=== PATIENT | male | born 1945 | race Caucasian/White ===

== ENCOUNTER → 2016-08-25 | Outpatient (CLI) | payer OTHER ==
[~2016-08-25] MED LIST: HYDR12.56 PO; LOSA50TA6 PO; NCDT14 TD
[2016-08-25 14:19] LABS: BLOOD UREA NITROGEN 8 mg/dl (7-18); BUN/CREATININE RATIO 9.7 (10-20); CALCIUM 8.9 mg/dl (8.5-10.1); CARBON DIOXIDE 29 mmol/L (21-32); CHLORIDE 99 mmol/L (98-107); GLUCOSE 99 mg/dl (70-99); POTASSIUM 3.6 mmol/L (3.5-5.1); SODIUM 136 mmol/L (136-145)
== END | disposition home or self-care (01) ==
LOC: C.LABBFT 07:50
PROVIDERS: ATTEND Nurse Practitioner
DX: E87.1 Hypo-osmolality and hyponatremia (principal)

== ENCOUNTER → 2017-06-12 | Outpatient (CLI) | payer OTHER ==
[2017-06-12 13:01] LABS: BLOOD UREA NITROGEN 17 mg/dl (7-18); BUN/CREATININE RATIO 20.1 (10-20); CARBON DIOXIDE 27 mmol/L (21-32); CHLORIDE 101 mmol/L (98-107); CREATININE 0.86 mg/dl (0.60-1.40); GLUCOSE 100 mg/dl (70-99); POTASSIUM 4.3 mmol/L (3.5-5.1); SODIUM 133 mmol/L (136-145)
== END | disposition home or self-care (01) ==
LOC: C.LABBFT 08:30
PROVIDERS: ATTEND Internal Medicine
DX: E87.1 Hypo-osmolality and hyponatremia (principal)

== ENCOUNTER 2019-02-25 11:39 | Inpatient (IN) ==
[2019-02-25] MEDS ORDERED: SODIUM CHLORIDE 0.9% 1000ML 1,000 ML IV SCH (12:00)
--- NOTE | 2019-02-25 12:26 | XRay Report ---
XR chest 1V portable CLINICAL HISTORY: weakness dyspnea COMPARISON STUDY: 12/31/2018 FINDINGS: The bones soft tissues and hemidiaphragms are normal. The cardiomediastinal silhouette is n ormal. The lungs are clear. The pulmonary vasculature is normal. IMPRESSION: Negative chest. The above report was generated using voice recognition software. It may contain grammatical, syntax or spelling errors. Electronically signed by: Chase Parsons M.D. 02/25/2019 12:25 PM
[2019-02-25 12:39] LABS: Prothrombin Time 10.5 Seconds (9.0-12.0)
[2019-02-25 12:48] LABS: Albumin Level 2.4 gm/dl (3.4-5.0); BUN Creatinine Ratio 32.4 (10-20); Calcium 8.4 mg/dl (8.5-10.1); Creatinine Clr Calc Pharmacy 72.8 ml/min; Est GFR (African American) 104.7; Est GFR (Non-African American) 90.3; Hematocrit (blood only) 34.7 % (42-52); Hemoglobin 12.1 g/dL (14.0-18.0); Magnesium 2.4 mg/dl (1.8-2.4); Mean Corpuscular Hemoglobin 30.6 pg (25-34); Mean Corpuscular Hgb Conc 34.9 g/dL (32-36); Mean Corpuscular Volume 87.6 fL (80-100); Mean Platelet Volume 10.5 fL (7.4-10.4); Platelet Count 30 K/uL (130-400); Potassium 3.6 mmol/L (3.5-5.1); RDW Coefficient of Variation 14.2 % (11.5-14.5); RDW Standard Deviation 45.7 fL (36.4-46.3); Red Blood Count 3.96 M/uL (4.7-6.1); White Blood Count 0.08 K/uL (4.8-10.8)
[2019-02-25 13:00] LABS: Albumin Globulin Ratio 0.7 (0.9-2); Bilirubin,Total 0.6 mg/dl (0.2-1); Globulin 3.6 gm/dl (2.5-4.0); Thyroid Stimulating Hormone 0.882 uIu/ml (0.300-4.500)
--- NOTE | 2019-02-25 13:52 | History & Physical Report ---
Date of Service February 25, 2019 Assessment & Plan (1) Odynophagia: 73-year-old male with history of metastatic small cell lung cancer status post radiation to the chest, pancytopenic. Patient with 1 week of progressive odynophagia as well as dysphagia to both solids and liquids. Minimal p.o. intake over the last few days. Was seen in the ER yesterday with mild hypotension and dehydration, administered IV fluids and discharged home. Patient returns with similar symptoms. Differential to include radiation esophagitis, infectious etiology such as HSV, Zainab must also be considered. -Admit to medical floor -Full liquid diet as tolerated -IV hydration with LR at 125 mL/h x 2 L -Monitor chemistry/electrolytes, urine output -Viscous lidocaine as needed for pain -IV Tylenol as needed for pain -Pepcid 20 mg IV twice daily -Consult oncology. Appreciate assistance with this case -Consult GI. Appreciate assistance with this case Present on Admission?: Yes (2) Pancytopenia: Patient afebrile, hemodynamically stable. -Neutropenic precautions -Repeat CBC in a.m. Present on Admission?: Yes (3) Hypothyroidism: Chronic. Stable. TSH equals 0.882 today -Continue Synthroid 25 mcg p.o. daily. If patient is unable to tolerate pills will switch to IV Present on Admission?: Yes (4) Hypertension: Blood pressure 152/62 at present. -Continue Norvasc -Continue losartan -Continue to monitor Present on Admission?: Yes (5) Small cell lung carcinoma: Recently diagnosed in January 2019. Patient has completed palliative radiation to the brain and chest and has completed first course of chemotherapy. He follows with oncology. -Oncology consult as above. -Discussed future consultation with palliative care team to assist with symptom management and support. Reinforced that palliative care does not necessarily mean hospice or end-of-life. Family is agreeable to future consultation. 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 Patient was initially seen in January 2019 with complaints of hoarseness and unintentional weight loss as well as dyspnea on exertion. He had a CT of the chest performed which showed a subcarinal/right lower lobe mass with additional satellite nodules and hypodense masses of the liver concerning for metastatic disease. On January 05, 2019 he had an FNA of the left lobe of the liver which revealed metastatic small cell carcinoma. On January 25 he had an MRI of the brain which revealed at least 10 enhancing cerebral and cerebellar masses with surrounding edema suggestive of metastatic disease. The patient completed palliative radiation therapy to the brain and the chest on February 11, 2019, 3000cGy to each area. Patient completed first cycle of carboplatin/etoposide/atezolizumab approximately 7 days ago. He is due for his next treatment in early March. Patient reports that since completion of his chemotherapy he has had a sore throat, difficulty swallowing secondary to pain, as well as dysphasia to both food and liquids. The symptoms have been progressive over the last 7 days. Patient also notes blisters on his lips that occurred 3 days ago which he believed to be cold sores as well as a rash on the soles of his feet. He also complains of substernal chest burning and loss of appetite. Patient has been unable to tolerate p.o. for the last few days. He was seen in the ER yesterday with similar complaints. He was administered IV fluids and discharged home with oncology follow-up. Patient denies fever but complains of frequent chills. He denies headache, visual changes, lesions in the mouth, abdominal pain, nausea, vomiting, diarrhea, constipation, dysuria. No additional complaints at this time. ER course: Normal saline fluid Allergies Allergy/AdvReac Type Severity Reaction Status Date / Time lisinopril AdvReac Verified 02/25/19 12:32 Home Medications Home Medications Medication Instructions Recorded Confirmed Type amlodipine 5 mg tablet 5 mg PO QAM 12/31/18 02/25/19 History aspirin 81 mg tablet,delayed 81 mg PO Q2D tab 12/31/18 02/25/19 History release levothyroxine 25 mcg tablet 25 mcg PO QAM 12/31/18 02/25/19 History metronidazole 0.75 % lotion 1 appln TOP QA 01/27/19 02/25/19 History acetaminophen [Tylenol Extra 500 mg PO Q6H PRN 02/25/19 02/25/19 History Strength] losartan 100 mg PO QAM 02/25/19 02/25/19 History Past Med/Surg History Medical History Acne rosacea (Acute) Anemia (Acute) Brain tumor (Acute) Dermatitis (Acute) Hoarseness (Acute) Hypertension (Acute) Hypothyroid (Acute) Impaired fasting glucose (Acute) Lung mass (Acute) Onychomycosis (Acute) Small cell carcinoma of lung (Acute) Surgical History History of arthroscopy of knee surgery 40 yrs ago Family History Father Myocardial infarction Brother , Myocardial infarction Sister , age 83 Diabetes Mother , age 96 Diabetes Stroke syndrome Sister No problems noted. Brother Coronary heart disease valve replacement Son No problems noted. Social History Preferred Language: R[place] Communication Ability: Effective Visual Impairment: Limited Hearing Ability: Normal Vice President Compliance Required: No Beliefs That Will Affect Care: None marital status: Current Living Situation: Spouse current occupational status: retired current occupation: retired [employer] worker Feels Safe at Home: Yes Smoking Status: Heavy tobacco smoker Cigarettes Per Day: 30 ; Hx Alcohol Use: Yes Alcohol type: beer Hx Substance Use: No Childhood Exposure to Second-Hand Smoke: Yes Review of Systems Review of Systems: All systems reviewed & are unremarkable except as noted in HPI & below Physical Exam Physical Exam: General: patient ill in appearance, resting comfortably, NAD, AA&O x 4, voice is soft and hoarse Skin: warm, dry, intact, crusted lesions noted on lower lip, no obvious vesicles, soles of feet with blanchable macular kolton colored reticular rash, nontender, no nodules/purpura HEENT: NC/AT, PERRL, EOMI, anicteric sclera, conjunctiva without injection, external ear normal to inspection and nontender, nares patent, dry mucus membranes, dentition intact, no oropharyngeal lesions, neck supple, trachea midline, no LAD, no thyromegaly, no JVD Heart: +S1/S2, regular, no m/r/g Lungs: equal air entry bilaterally, no rales/rhonchi/wheezes Abd: +BS, soft, NT/ND, no masses/organomegaly/ascites Ext: warm, 2+ pulses in UE/LE bilaterally, no clubbing/cyanosis or edema Neuro: nonfocal, patient AA&O x 4, speech intact, no facial droop, moving all extremities on command with equal strength 5/5 Results & Data Vital Signs (Past 12 Hours) Vital Signs Temp Pulse Pulse Resp BP BP Pulse Ox 02/25/19 12:35 61 20 152/62 H 96 02/25/19 11:45 36.7 C 98 H 20 131/90 98 Laboratory Results Lab Results 02/25/19 02/25/19 02/25/19 Range/Units 12:09 12:09 12:09 WBC 0.08 L* (4.8-10.8) K/uL RBC 3.96 L (4.7-6.1) M/uL Hgb 12.1 L (14.0-18.0) g/dL Hct 34.7 L (42-52) % MCV 87.6 (80-100) fL MCH 30.6 (25-34) pg MCHC 34.9 (32-36) g/dL RDW Std Deviation 45.7 (36.4-46.3) fL RDW Coeff of Moreno 14.2 (11.5-14.5) % Plt Count 30 L (130-400) K/uL MPV 10.5 H (7.4-10.4) fL Immature Gran % (Auto) Cancelled Neut % (Auto) Cancelled Lymph % (Auto) Cancelled Mason % (Auto) Cancelled Eos % (Auto) Cancelled Baso % (Auto) Cancelled Immature Gran # (Auto) Cancelled Neut # (Auto) Cancelled Lymph # (Auto) Cancelled Mason # (Auto) Cancelled Eos # (Auto) Cancelled Baso # (Auto) Cancelled Neutrophils % (Manual) Cancelled Band Neutrophils % Cancelled Lymphocytes % (Manual) Cancelled Prolymphocyte % Cancelled Reactive Lymphs % (Man) Cancelled Monocytes % (Manual) Cancelled Eosinophils % (Manual) Cancelled Basophils % (Manual) Cancelled Metamyelocytes % (Man) Cancelled Myelocytes % (Man) Cancelled Promyelocytes % (Man) Cancelled Blast Cells % (Manual) Cancelled Plasma Cell % (Manual) Cancelled Other Cells % Cancelled Nucleated RBC % Cancelled Neutrophils # (Manual) Cancelled Band Neutrophils # Cancelled Total Absolute Neuts Cancelled Lymphocytes # (Manual) Cancelled Prolymphocyte # Cancelled Reactive Lymphs # Cancelled Total Abs Lymphocytes Cancelled Monocytes # (Manual) Cancelled Eosinophils # (Manual) Cancelled Basophils # (Manual) Cancelled Metamyelocytes # (Man) Cancelled Myelocytes # (Manual) Cancelled Promyelocytes # (Man) Cancelled Blast Cells # (Man) Cancelled Plasma Cell # (Manual) Cancelled Other Cells # Cancelled Nucleated RBCs # (Man) Cancelled Hypersegmented Neuts Cancelled Hyposegmented Neuts Cancelled Hypogranular Neuts Cancelled Large Granular Lymphs Cancelled # Lrg Granular Lymphs Cancelled Hairy Cells Cancelled Smudge Cells Cancelled Toxic Granulation Cancelled Toxic Vacuolation Cancelled Dohle Bodies Cancelled Moi Rods Cancelled Hypogranular Platelets Cancelled Clumped Platelets Cancelled Giant Platelets Cancelled Platelet Satelliting Cancelled RBC Morphology Cancelled Polychromasia Cancelled Hypochromasia Cancelled Poikilocytosis Cancelled Basophilic Stippling Cancelled Anisocytosis Cancelled Microcytosis Cancelled Macrocytosis Cancelled Spherocytes Cancelled Pappenheimer Bodies Cancelled Sickle Cells Cancelled Target Cells Cancelled Tear Drop Cells Cancelled Ovalocytes Cancelled Stomatocytes Cancelled Rider-Villard Bodies Cancelled Echinocytes Cancelled Acanthocytes (Spur) Cancelled Rouleaux Cancelled RBC Agglutinates Cancelled Schistocytes Cancelled RBC Morph Comment Cancelled Sezary Cell Cancelled PT 10.5 (9.0-12.0) Seconds INR 1.0 (0.9-1.1) Sodium 145 (136-145) mmol/L Potassium 3.6 (3.5-5.1) mmol/L Chloride 113 H (98-107) mmol/L Carbon Dioxide 24 (21-32) mmol/L Anion Gap 8.0 (3-11) BUN 26 H (7-18) mg/dl Creatinine 0.79 (0.6-1.4) mg/dl Est Cr Clr Drug Dosing 72.8 ml/min Est GFR ( Amer) 104.7 Est GFR (Non-Af Amer) 90.3 BUN/Creatinine Ratio 32.4 H (10-20) Glucose 151 H (70-99) mg/dl Calcium 8.4 L (8.5-10.1) mg/dl Magnesium 2.4 (1.8-2.4) mg/dl Total Bilirubin 0.6 (0.2-1) mg/dl AST 25 (15-37) U/L ALT 43 (12-78) U/L Alkaline Phosphatase 74 (45-117) U/L Total Protein 6.0 L (6.4-8.2) gm/dl Albumin 2.4 L (3.4-5.0) gm/dl Globulin 3.6 (2.5-4.0) gm/dl Albumin/Globulin Ratio 0.7 L (0.9-2) TSH 0.882 (0.300-4.500) uIu/ml Diagnostic Findings XR chest 1V portable CLINICAL HISTORY: weakness dyspnea COMPARISON STUDY: 12/31/2018 FINDINGS: The bones soft tissues and hemidiaphragms are normal. The cardiomediastinal silhouette is normal. The lungs are clear. The pulmonary vasculature is normal. IMPRESSION: Negative chest. The above report was generated using voice recognition software. It may contain grammatical, syntax or spelling errors. Electronically signed by: Chase Parsons M.D. 02/25/2019 12:25 PM Dictated: 02/25/19 1224 Transcribed: 02/25/19 1224 Code Status & VTE Plan Code Status FULL VTE Prophylaxis Plan VTE Prophylaxis will be ordered: Yes PG Care Time/CCT Total # of Minutes Spent Total Time Spent with Patient: Total time spent is greater than 50% in coordination of care (as documented) at patient's floor/unit and/or counseling patient: (1) Hypothyroidism Hypothyroidism type: unspecified Qualified Code(s): E03.9 - Hypothyroidism, unspecified (2) Hypertension Hypertension type: essential hypertension Qualified Code(s): I10 - Essential (primary) hypertension
[2019-02-25] MEDS ORDERED: LIDOCAINE HCL VISCOUS SOLN 2% 15 ML UDC MT PRN (15:05)
[2019-02-25] MEDS ORDERED: ONDANSETRON INJ 2 MG/ML 2 ML VIAL IV PRN (15:05)
[2019-02-25] MEDS ORDERED: ACETAMINOPHEN 1,000 MG/100 ML VIAL IV PRN (15:05)
[2019-02-25] MEDS: LACTATED RINGER'S 1,000 ML IV SCH (16:08)
--- NOTE | 2019-02-25 17:05 | Gastrointestinal Consultation ---
Date of Consultation February 25, 2019 Assessment & Plan (1) Small cell lung carcinoma: (2) Odynophagia: Differential diagnosis includes: 1) Mucositis 2) Radiation esophagitis 3) Zainab esophagitis 4) GERD Recommend Protonix 40 mg IV BID Recommend Diflucan 200 mg IV today, then 100 mg IV daily for 10 days Recommend Magic mouthwash (1:1:1 mix of benadryl, maalox, and viscous lidocaine): Swish and swallow 15 ml QID Barium swallow, when his pancytopenia improves, as it is most likely related to chemotherapy Dr. Flower is covering this weekend for any questions related to GI (3) Pancytopenia: History of Present Illness Reason for Consultation: Dysphagia Attending Physician: Lianne Navarro DO History of Present Illness Mr. Anne is a pleasant 73 yo CM who was diagnosed with small cell lung cancer in December 2018. He has a known history of brain and hepatic mets, and has been receiving chemoradiation therapy as per Dr. James. He developed worsening dysphagia which began approximately 4 days after his most recent radiation treatments. He has had progressive symptoms of dysphagia to both solids and li quids. He has both trouble swallowing, as well as painful swallowing. He currently rates his painful swallowing as 8-9/10 in intensity. Upon arrival to the hospital, he was also noted to be pancytopenic. He denies any fevers at present, but does feel cold. He denies any abdominal pain, nausea, vomiting, diarrhea, hematemesis, melena, hematochezia, GERD, or history of endoscopic workup. Allergies Allergy/AdvReac Type Severity Reaction Status Date / Time lisinopril AdvReac Verified 02/25/19 12:32 Home Medications Home Medications Medication Instructions Recorded Confirmed Type amlodipine 5 mg tablet 5 mg PO QAM 12/31/18 02/25/19 History aspirin 81 mg tablet,delayed 81 mg PO Q2D tab 12/31/18 02/25/19 History release levothyroxine 25 mcg tablet 25 mcg PO QAM 12/31/18 02/25/19 History metronidazole 0.75 % lotion 1 appln TOP QAM 01/27/19 02/25/19 History acetaminophen [Tylenol Extra 500 mg PO Q6H PRN 02/25/19 02/25/19 History Strength] losartan 100 mg PO QAM 02/25/19 02/25/19 History Patient History Medical History Acne rosacea (Acute) Anemia (Acute) Brain tumor (Acute) Dermatitis (Acute) Hoarseness (Acute) Hypertension (Acute) Hypothyroid (Acute) Impaired fasting glucose (Acute) Lung mass (Acute) Onychomycosis (Acute) Small cell carcinoma of lung (Acute) Surgical History History of arthroscopy of knee surgery 40 yrs ago Family History Father Myocardial infarction Brother , Myocardial infarction Sister , age 83 Diabetes Mother , age 96 Diabetes Stroke syndrome Sister No problems noted. Brother Coronary heart disease valve replacement Son No problems noted. Social History Preferred Language: Wolof Communication Ability: Effective Visual Impairment: Limited Hearing Ability: Normal Wildlife Manager Required: No Beliefs That Will Affect Care: None marital status: Current Living Situation: Spouse current occupational status: retired current occupation: retired [employer] worker Feels Safe at Home: Yes Smoking Status: Former smoker Cigarettes Per Day: 30 ; Second Hand Exposure: No ; Hx Alcohol Use: Yes Alcohol type: beer Hx Substance Use: No Childhood Exposure to Second-Hand Smoke: Yes Review of Systems Review of Systems: All systems reviewed & are unremarkable except as noted in HPI & below Physical Exam Constitutional: Chronic ill-appearing, mild distress Respiratory: normal respiratory effort, lungs clear to auscultation Cardiovascular: RRR, no murmur, no edema Gastrointestinal (Abdomen): normal bowel sounds, soft, nontender, no hepatosplenomegaly Results & Data Vital Signs (Past 12 Hours) Vital Signs Temp Pulse Pulse Resp BP BP Pulse Ox 02/25/19 15:15 36.8 C 62 19 151/69 H 93 02/25/19 14:45 67 18 137/64 92 02/25/19 14:07 71 20 140/63 92 02/25/19 12:35 61 20 152/62 H 96 02/25/19 11:45 36.7 C 98 H 20 131/90 98 PG Care Time/CCT Total # of Minutes Spent Total Time Spent with Patient: Total time spent is greater than 50% in coordination of care (as documented) at patient's floor/unit and/or counseling patient:
[2019-02-25 17:19] LABS: Appearance Urine Clear (Clear); Bacteria Urine Automated Negative (Negative); Bilirubin Urine Negative (Negative); Blood Urine Negative (Negative); Color Urine Yellow; Glucose Urine UA Negative (Negative); Ketones Urine 2+ (Negative); Leukocyte Esterase Urine Negative (Negative); Nitrite Urine Negative (Negative); Protein Urine 2+ (Negative); RBC Urine Automated 0-4 /hpf (0-4); Specific Gravity Urine 1.018 (1.000-1.030); Urobilinogen Urine Negative (Negative); pH Urine 5.5 (4.5-7.5)
--- NOTE | 2019-02-25 18:09 | Emergency Department Note ---
Entered by Babs Quintanilla acting as a scribe for History of Present Illness General Chief complaint: Throat Pain Stated complaint: HARD TO SWALLOW Source: patient Mode of arrival: ambulatory Limitations: no limitations History of Present Illness Provider complaint: Throat pain Onset (ago): week(s) (several weeks ago) Location: mouth (throat) Radiation: non-radiation Pain Consistency: + other (worsening) Maximum Pain Intensity: 9 Quality: + other (pain, difficulty swallowing) Relieved By: + none Associated symptoms: + other (Denies: drainage, white spots in mouth); no fever/chills and no nausea/vomiting Treatments prior to arrival: none The patient is a 73 year old male with a history of small cell carcinoma of the lung, hypothyroidism, hypertension, brain tumor, and anemia who presents to the Emergency Room with complaints of worsening throat pain starting several weeks ago. Per , the patient started having pain when swallowing after starting radiation recently. She notes that he received 2 weeks of radiation, followed by chemotherapy last week. She indicates that the patient's difficulty swallowing has worsened, particularly over the past few days to the point where he can no longer eat and drink. She denies any fever, nausea, vomiting, drainage, and white spots in the patient's mouth. Per , the patient was in the ED last night for the same symptoms and was evaluated by Dr. Lamb. Dr. Lamb reportedly did not want to admit the patient out of concern for his compromised immune system. She states that she called Dr. Zimmer this morning because the patient had not improved after discharge and was subsequently referred back to the ED for admission to the hospital. She notes that the patient's PCP is Dr. Mariah Lockett. Home Medications Home Medications Medication Instructions Recorded Confirmed Type amlodipine 5 mg tablet 5 mg PO QAM 12/31/18 02/25/19 History aspirin 81 mg tablet,delayed 81 mg PO Q2D tab 12/31/18 02/25/19 History release levothyroxine 25 mcg tablet 25 mcg PO QAM 12/31/18 02/25/19 History metronidazole 0.75 % lotion 1 appln TOP QAM 01/27/19 02/25/19 History acetaminophen [Tylenol Extra 500 mg PO Q6H PRN 02/25/19 02/25/19 History Strength] losartan 100 mg PO QAM 02/25/19 02/25/19 History Allergies Allergy/AdvReac Type Severity Reaction Status Date / Time lisinopril AdvReac Verified 02/25/19 12:32 Past Med/Surg History Medical History Acne rosacea (Acute) Anemia (Acute) Brain tumor (Acute) Dermatitis (Acute) Hoarseness (Acute) Hypertension (Acute) Hypothyroid (Acute) Impaired fasting glucose (Acute) Lung mass (Acute) Onychomycosis (Acute) Small cell carcinoma of lung (Acute) Surgical History History of arthroscopy of knee surgery 40 yrs ago Family History Father Myocardial infarction Brother , Myocardial infarction Sister , age 83 Diabetes Mother , age 96 Diabetes Stroke syndrome Sister No problems noted. Brother Coronary heart disease valve replacement Son No problems noted. Social History Preferred Language: Persian Communication Ability: Effective Visual Impairment: Limited Hearing Ability: Normal Craniologist Required: No Beliefs That Will Affect Care: None marital status: Current Living Situation: Spouse current occupational status: retired current occupation: retired [employer] worker Feels Safe at Home: Yes Smoking Status: Former smoker Cigarettes Per Day: 30 ; Second Hand Exposure: No ; Hx Alcohol Use: Yes Alcohol type: beer Hx Substance Use: No Childhood Exposure to Second-Hand Smoke: Yes Review of Systems See HPI for pertinent positives & negatives. and A total of 10 systems reviewed and were otherwise negative Physical Exam Vital Signs Vital Signs - 24 hr 02/25/19 11:45 02/25/19 12:35 Temperature 36.7 C Temperature Source Oral Sepsis Recent Fever Within 48 Hours No Sepsis Action Taken by Nursing No Action Required Pulse Rate 98 H Pulse Rate [Apical] 61 Respiratory Rate 20 20 Respiratory Effort / Characteristics Non-Labored Spontaneous Respiratory Depth Normal Normal Blood Pressure 131/90 Blood Pressure [Left Arm] 152/62 H Blood Pressure Mean 103 Blood Pressure Mean [Left Arm] 92 Blood Pressure Position Sitting Pulse Oximetry 98 96 Oxygen Delivery Method Room Air Room Air GENERAL: Patient is awake alert in no acute distress patient is resting comfortably and showing no signs of anxiety EYES: The conjunctivae are clear. The pupils are round and reactive. EARS, NOSE, MOUTH AND THROAT: The nose is without any evidence of any deformity. Mucous membranes are dry. NECK: The neck is nontender and supple. RESPIRATORY: Normal respiratory effort is noted there is no evidence of wheezing rhonchi or rales CARDIOVASCULAR: Regular rate and rhythm noted there no murmurs rubs or gallops normal S1 normal S2 GASTROINTESTINAL: The abdomen is soft. Bowel sounds are present in all quadrants. Abdomen is nontender MUSCULOSKELETAL/EXTREMITIES: There is no evidence of gross deformity full range of motion is noted in the hips and shoulders SKIN: There is no obvious evidence of any rash. There are no petechiae, pallor or cyanosis noted. NEUROLOGIC: Patient is awake alert and oriented x3. Course 1158: The patient was evaluated in room C7, and a complete history and physical examination were performed. 1221: I reviewed the patient's case with Dr. Ramon Sim, Wendy Barrios. Dr. Navarro will evaluate the patient for further management. Consultations Consultation #1: I reviewed the patient's case with Dr. Ramon Sim, Wendy Barrios. Dr. Navarro will evaluate the patient for further management. Time: 12:21 Administered Medications Lactated Ringer's (Lr) 1,000 mls @ 125 mls/hr IV .Q8H NORMAN Stop: 02/26/19 07:04 Last Admin: 02/25/19 16:08 Dose: 125 mls/hr Documented by: [id number] Lidocaine HCl (Viscous Lidocaine 2%) 15 ml MT PRN PRN PRN Reason: Pain Stop: 03/27/19 15:04 Last Admin: 02/25/19 18:17 Dose: 15 ml Documented by: [id number] Discontinued Medications Sodium Chloride (Nss 1000ml) 1,000 mls @ 999 mls/hr IV .Q1H1M NORMAN Stop: 02/25/19 13:00 Last Infusion: 02/25/19 13:44 Dose: 0 mls/hr Documented by: [id number] Admin: 02/25/19 12:34 Dose: 999 mls/hr Documented by: [id number] Medical Decision Making Differential Diagnosis Differential diagnosis: Etiologies such as metabolic, infection, hypo/hyperglycemia, electrolyte abnormalities, cardiac sources, intracerebral event, toxicologic, neurologic, as well as others were entertained. Medical Records Attestation: I reviewed the patient's medical records. Home Medications Current Medication List: was personally reviewed by me Laboratory Data Attestation: I reviewed the patient's lab results. Result diagrams: 02/25/19 12:09 02/25/19 12:09 Lab Results 02/25/19 02/25/19 02/25/19 Range/Units 12:09 12:09 12:09 WBC 0.08 L* (4.8-10.8) K/uL RBC 3.96 L (4.7-6.1) M/uL Hgb 12.1 L (14.0-18.0) g/dL Hct 34.7 L (42-52) % MCV 87.6 (80-100) fL MCH 30.6 (25-34) pg MCHC 34.9 (32-36) g/dL RDW Std Deviation 45.7 (36.4-46.3) fL RDW Coeff of Moreno 14.2 (11.5-14.5) % Plt Count 30 L (130-400) K/uL MPV 10.5 H (7.4-10.4) fL Immature Gran % (Auto) Cancelled Neut % (Auto) Cancelled Lymph % (Auto) Cancelled Hardy % (Auto) Cancelled Eos % (Auto) Cancelled Baso % (Auto) Cancelled Immature Gran # (Auto) Cancelled Neut # (Auto) Cancelled Lymph # (Auto) Cancelled Hardy # (Auto) Cancelled Eos # (Auto) Cancelled Baso # (Auto) Cancelled Neutrophils % (Manual) Cancelled Band Neutrophils % Cancelled Lymphocytes % (Manual) Cancelled Prolymphocyte % Cancelled Reactive Lymphs % (Man) Cancelled Monocytes % (Manual) Cancelled Eosinophils % (Manual) Cancelled Basophils % (Manual) Cancelled Metamyelocytes % (Man) Cancelled Myelocytes % (Man) Cancelled Promyelocytes % (Man) Cancelled Blast Cells % (Manual) Cancelled Plasma Cell % (Manual) Cancelled Other Cells % Cancelled Nucleated RBC % Cancelled Neutrophils # (Manual) Cancelled Band Neutrophils # Cancelled Total Absolute Neuts Cancelled Lymphocytes # (Manual) Cancelled Prolymphocyte # Cancelled Reactive Lymphs # Cancelled Total Abs Lymphocytes Cancelled Monocytes # (Manual) Cancelled Eosinophils # (Manual) Cancelled Basophils # (Manual) Cancelled Metamyelocytes # (Man) Cancelled Myelocytes # (Manual) Cancelled Promyelocytes # (Man) Cancelled Blast Cells # (Man) Cancelled Plasma Cell # (Manual) Cancelled Other Cells # Cancelled Nucleated RBCs # (Man) Cancelled Hypersegmented Neuts Cancelled Hyposegmented Neuts Cancelled Hypogranular Neuts Cancelled Large Granular Lymphs Cancelled # Lrg Granular Lymphs Cancelled Hairy Cells Cancelled Smudge Cells Cancelled Toxic Granulation Cancelled Toxic Vacuolation Cancelled Dohle Bodies Cancelled Moi Rods Cancelled Hypogranular Platelets Cancelled Clumped Platelets Cancelled Giant Platelets Cancelled Platelet Satelliting Cancelled RBC Morphology Cancelled Polychromasia Cancelled Hypochromasia Cancelled Poikilocytosis Cancelled Basophilic Stippling Cancelled Anisocytosis Cancelled Microcytosis Cancelled Macrocytosis Cancelled Spherocytes Cancelled Pappenheimer Bodies Cancelled Sickle Cells Cancelled Target Cells Cancelled Tear Drop Cells Cancelled Ovalocytes Cancelled Stomatocytes Cancelled R[place] Bodies Cancelled Echinocytes Cancelled Acanthocytes (Spur) Cancelled Rouleaux Cancelled RBC Agglutinates Cancelled Schistocytes Cancelled RBC Morph Comment Cancelled Sezary Cell Cancelled PT 10.5 (9.0-12.0) Seconds INR 1.0 (0.9-1.1) Sodium 145 (136-145) mmol/L Potassium 3.6 (3.5-5.1) mmol/L Chloride 113 H (98-107) mmol/L Carbon Dioxide 24 (21-32) mmol/L Anion Gap 8.0 (3-11) BUN 26 H (7-18) mg/dl Creatinine 0.79 (0.6-1.4) mg/dl Est Cr Clr Drug Dosing 72.8 ml/min Est GFR ( Amer) 104.7 Est GFR (Non-Af Amer) 90.3 BUN/Creatinine Ratio 32.4 H (10-20) Glucose 151 H (70-99) mg/dl Calcium 8.4 L (8.5-10.1) mg/dl Magnesium 2.4 (1.8-2.4) mg/dl Total Bilirubin 0.6 (0.2-1) mg/dl AST 25 (15-37) U/L ALT 43 (12-78) U/L Alkaline Phosphatase 74 (45-117) U/L Total Protein 6.0 L (6.4-8.2) gm/dl Albumin 2.4 L (3.4-5.0) gm/dl Globulin 3.6 (2.5-4.0) gm/dl Albumin/Globulin Ratio 0.7 L (0.9-2) TSH 0.882 (0.300-4.500) uIu/ml Imaging Data Radiologist's Impression: Radiology results as stated below per my review and the radiologist's interpretation: XR chest 1V portable CLINICAL HISTORY: weakness dyspnea COMPARISON STUDY: 12/31/2018 FINDINGS: The bones soft tissues and hemidiaphragms are normal. The cardiomediastinal silhouette is normal. The lungs are clear. The pulmonary vasculature is normal. IMPRESSION: Negative chest. The above report was generated using voice recognition software. It may contain grammatical, syntax or spelling errors. Electronically signed by: Chase Parsons M.D. 02/25/2019 12:25 PM Blood Pressure Blood Pressure Findings: Normal blood pressure MDM Narrative The patient is a 73-year-old male who presented to the emergency department for an evaluation of decreased p.o. intake and pain with full swallowing. Patient is a history of small cell lung carcinoma and is treated with radiation. He had significant findings that could be consistent with dehydration. I discussed patient's laboratory results with him. He was seen yesterday for similar complaints but at that time was not felt to be a good candidate for inpatient management because of his pancytopenia. He continues to not be able to take p.o. intake so his oncologist sent him to the emergency department to be admitted. The patient was treated with IV fluids in the emergency department. I discussed his case with the on-call [facility] hospitalist group. They have agreed to evaluate the patient in the emergency department for further management disposition. The patient had no fevers in the emergency department. Impression & Plan Dysphagia, Dehydration, Lung cancer, Pancytopenia Discharge Plan Visit Data *Final* Discharge Date/Time: 02/25/19 14:45 Chief Complaint: Throat Pain Stated Complaint: HARD TO SWALLOW ED Provider: Manuel Obrien Discharge Problem: Dysphagia, Dehydration, Lung cancer, Pancytopenia Patient Disposition: Admitted As Inpatient Discharge Instructions Interventions: ED Discharge Assessment Last Done: 02/25/19 14:45 Discharge Problem: Dysphagia Qualifiers: Dysphagia type: unspecified Qualified Code(s): R13.10 - Dysphagia, unspecified Lung cancer Qualifiers: Laterality: unspecified laterality Lung location: unspecified part of lung Qualified Code(s): C34.90 - Malignant neoplasm of unspecified part of unspecified bronchus or lung The scribe's documentation has been prepared under my direction and personally reviewed by me in its entirety. I confirm that the note above accurately reflects all work, treatment, procedures, and medical decision making performed by me.
[2019-02-25] MEDS: ENOXAPARIN INJ 40 MG/0.4 ML SYR SQ SCH ×2 (21:24→21:30)
[2019-02-25] MEDS: FAMOTIDINE 20 MG in SYRINGE 3 ML IV SCH (21:25)
[2019-02-25] MEDS ORDERED: FLUCONAZOLE 200 MG/100 ML BAG IV STA (22:29)
[2019-02-26] MEDS: LACTATED RINGER'S 1,000 ML IV SCH ×3 (00:47→19:15)
[2019-02-26] MEDS ORDERED: DiphenhydrAMINE HCL 50 MG/ML VIAL IV STA (02:26)
[2019-02-26] MEDS: LEVOTHYROXINE SODIUM 25 MCG TABLET PO SCH (05:37)
[2019-02-26 06:26] LABS: Hematocrit (blood only) 27.3 % (42-52); Hemoglobin 9.6 g/dL (14.0-18.0); Mean Corpuscular Hemoglobin 30.8 pg (25-34); Mean Corpuscular Hgb Conc 35.2 g/dL (32-36); Mean Corpuscular Volume 87.5 fL (80-100); Mean Platelet Volume 9.7 fL (7.4-10.4); Platelet Count 24 K/uL (130-400); RDW Coefficient of Variation 13.9 % (11.5-14.5); RDW Standard Deviation 44.6 fL (36.4-46.3); Red Blood Count 3.12 M/uL (4.7-6.1); White Blood Count 0.03 K/uL (4.8-10.8)
[2019-02-26 06:37] LABS: BUN Creatinine Ratio 24.2 (10-20); Calcium 7.8 mg/dl (8.5-10.1); Creatinine Clr Calc Pharmacy 77.5 ml/min; Est GFR (African American) 110.7; Est GFR (Non-African American) 95.5; Potassium 2.9 mmol/L (3.5-5.1)
[2019-02-26] MEDS: LOSARTAN POTASSIUM 50 MG TAB PO SCH (08:46)
[2019-02-26] MEDS: AMLODIPINE BESYLATE 5 MG TAB PO SCH (08:47)
[2019-02-26] MEDS: FAMOTIDINE 20 MG in SYRINGE 3 ML IV SCH ×2 (08:53→20:50)
[2019-02-26] MEDS: POTASSIUM CHLORIDE / WTR 10 MEQ/100 ML PLCT IV SCH ×7 (10:37→20:49)
[2019-02-26] MEDS ORDERED: KETOROLAC TROMETHAMINE 15 MG/ML VIAL IV ONE (11:16)
[2019-02-26] MEDS ORDERED: ACETAMINOPHEN SOL 650 MG/20.3 ML UDC PO PRN (11:28)
--- NOTE | 2019-02-26 12:53 | Oncology Consultation ---
Date of Consultation February 26, 2019 Assessment & Plan (1) Dysphagia: I agree with gastroenterology that this likely represents acute esophagitis. Given his severely low ANC, I think empiric treatment for esophageal candidiasis is appropriate. He may also have components of chemo- induced mucositis and radiation-induced esophagitis. I suspect the reality is a combination of all three. I would continue with supportive care as prescribed. He can also swallow the viscous lidocaine if it helps him to eat. We will start GCSF, as below, which will accelerate the healing process. Finally, he will likely need some changes to his treatment regimen, which we will discuss with Dr. James. Present on Admission?: Yes (2) Pancytopenia: This is chemotherapy-induced but is much more severe than I might have anticipated. I would start neupogen 480 mcg SC daily today. I would transfuse him for hemglobin <8 and platelets <15K or for bleeding. His count should start to recover in the next few days. As discussed below, we will make some adjustments in his chemotherapy regimen moving forward. I would start IV antibiotics for any fever above 38C. Present on Admission?: Yes (3) Small cell lung carcinoma: He had a very difficult time with his first cycle of chemo, for the various reasons discussed above. The first cycle of treatment for advanced SCLC is almost always the most difficult, because patients are typically quite ill when they initially present. With adjustments and some time to heal from RT, along with a response in his disease to chemo and RT, his subsequent cycles should be better. We will make arrangements for his outpatient follow up prior to discharge. Present on Admission?: Yes History of Present Illness Reason for Consultation: Dysphagia/odynophagia Small cell lung cancer Pancytopenia Attending Physician: Timbo Mosher DO History of Present Illness Mr. Anne is a 73 year old man with widely metastatic small cell lung cancer. He had bulky mediastinal lymphadenopathy and so underwent palliative RT to that area, which finished 02/09. He started palliative chemotherapy with carboplatin, etoposide, and atezolizumab on 02/16/19. He has since developed intractable dysphagia and odynophagia that has led to severe anorexia. Labs on revealed a total WBC count of essentially zero along with severe thrombocytopenia. He was admitted yesterday for the severe dysphagia. He is now on IV antifungals and receiving oral lidocaine. He is feeling slightly better today and was able to swallow some Jello while we were talking. He denied any fevers, sweats, dysuria, or diarrhea. He had a coughing fit last night that led to an episode of post-tussive emesis. He denies any bleeding anywhere. Allergies Allergy/AdvReac Type Severity Reaction Status Date / Time lisinopril AdvReac Verified 02/25/19 12:32 Home Medications Home Medications Medication Instructions Recorded Confirmed Type amlodipine 5 mg tablet 5 mg PO QAM 12/31/18 02/25/19 History aspirin 81 mg tablet,delayed 81 mg PO Q2D tab 12/31/18 02/25/19 History release levothyroxine 25 mcg tablet 25 mcg PO QAM 12/31/18 02/25/19 History metronidazole 0.75 % lotion 1 appln TOP QAM 01/27/19 02/25/19 History acetaminophen [Tylenol Extra 500 mg PO Q6H PRN 02/25/19 02/25/19 History Strength] losartan 100 mg PO QAM 02/25/19 02/25/19 History Patient History Medical History Acne rosacea (Acute) Anemia (Acute) Brain tumor (Acute) Dermatitis (Acute) Hoarseness (Acute) Hypertension (Acute) Hypothyroid (Acute) Impaired fasting glucose (Acute) Lung mass (Acute) Onychomycosis (Acute) Small cell carcinoma of lung (Acute) Surgical History History of arthroscopy of knee surgery 40 yrs ago Family History Father Myocardial infarction Brother , Myocardial infarction Sister , age 83 Diabetes Mother , age 96 Diabetes Stroke syndrome Sister No problems noted. Brother Coronary heart disease valve replacement Son No problems noted. Social History Preferred Language: Indonesian Communication Ability: Effective Visual Impairment: Limited Hearing Ability: Normal Service Car Operator Required: No Beliefs That Will Affect Care: None marital status: Current Living Situation: Spouse current occupational status: retired current occupation: retired [employer] worker Feels Safe at Home: Yes Smoking Status: Former smoker Cigarettes Per Day: 30 ; Second Hand Exposure: No ; Hx Alcohol Use: Yes Alcohol type: beer Hx Substance Use: No Childhood Exposure to Second-Hand Smoke: Yes Review of Systems Constitutional: + fatigue, + anorexia and + weight loss; no fever Ear, Nose, Mouth, Throat: as per Subjective / HPI Respiratory: + cough; no dyspnea Cardiovascular: no chest pain and no edema Gastrointestinal: as per Subjective / HPI Genitourinary: no dysuria and no hematuria Integumentary: + alopecia; no rash Neurologic: no dizziness and no headache(s) Hematologic / Lymphatic: no easy bleeding and no easy bruising Physical Exam Constitutional: + ill appearing and comfortable; no acute distress Eyes: + anicteric sclerae and EOM intact bilaterally ENMT: Mouth: + dry oral mucous membranes; no oral mucosal abnormality Hoarse Neck: trachea midline, no thyromegaly Respiratory: normal respiratory effort, lungs clear to auscultation Cardiovascular: RRR, no murmur, no edema Gastrointestinal (Abdomen): Inspection/Auscultation: normal bowel sounds Percussion/Palpation: abdomen soft; abdomen nontender Skin: no rashes, warm and dry Lymphatic: no cervical or axillary lymphadenopathy Results & Data Vital Signs (Past 12 Hours) Vital Signs Temp Pulse Resp BP Pulse Ox 02/26/19 07:57 37.0 C 63 19 138/54 L 90 02/26/19 04:48 38.2 C H 74 18 131/54 L 92 Laboratory Results Abnormal lab results 02/25/19 02/25/19 02/26/19 Range/Units 12:09 16:53 05:33 WBC 0.03 L* (4.8-10.8) K/uL RBC 3.12 L (4.7-6.1) M/uL Hgb 9.6 L (14.0-18.0) g/dL Hct 27.3 L (42-52) % Plt Count 24 L* (130-400) K/uL Sodium (136-145) mmol/L Potassium (3.5-5.1) mmol/L Chloride (98-107) mmol/L BUN/Creatinine Ratio (10-20) Glucose (70-99) mg/dl Calcium (8.5-10.1) mg/dl Total Protein 6.0 L (6.4-8.2) gm/dl Albumin/Globulin Ratio 0.7 L (0.9-2) Urine Protein 2+ H (Negative) Urine Ketones 2+ H (Negative) U Hyaline Cast (Auto) 5-10 H (0-5) /lpf U Epithel Cells (Auto) 10-20 H (0-5) /lpf 02/26/19 Range/Units 05:33 WBC (4.8-10.8) K/uL RBC (4.7-6.1) M/uL Hgb (14.0-18.0) g/dL Hct (42-52) % Plt Count (130-400) K/uL Sodium 148 H (136-145) mmol/L Potassium 2.9 L D (3.5-5.1) mmol/L Chloride 116 H (98-107) mmol/L BUN/Creatinine Ratio 24.2 H (10-20) Glucose 115 H (70-99) mg/dl Calcium 7.8 L (8.5-10.1) mg/dl Total Protein (6.4-8.2) gm/dl Albumin/Globulin Ratio (0.9-2) Urine Protein (Negative) Urine Ketones (Negative) U Hyaline Cast (Auto) (0-5) /lpf U Epithel Cells (Auto) (0-5) /lpf (1) Dysphagia Dysphagia type: unspecified Qualified Code(s): R13.10 - Dysphagia, unspecified
[2019-02-26] MEDS ORDERED: MAGNESIUM HYDROXIDE SUSP 30 ML UDC PO PRN (13:21)
[2019-02-26] MEDS ORDERED: ALUMINUM/MAGNESIUM SUSP 30 ML UDC PO PRN (13:21)
[2019-02-26] MEDS ORDERED: POLYETHYLENE (MIRALAX) 17 GM PACK PO PRN (13:21)
[2019-02-26] MEDS ORDERED: ACETAMINOPHEN 325 MG TAB PO PRN (13:21)
--- NOTE | 2019-02-26 14:45 | Family Medicine Progress Note ---
Date of Service February 26, 2019 Assessment & Plan (1) Dysphagia: 73 y/o M w/ Small Cell Carcinoma of lung, presented with dysphagia and odynophagia for the last week. Currently receiving chemotherapy and radiation treatment. Dysphagia: -severely low ANC; continue IV fluconazole -presumptive esophageal candidiasis vs radiation esophagitis vs chemo-induced mucositis -started tylenol suspension for pain relief We will start GCSF Pancytopenia: -start neupogen 480 mcg SC daily -start IV antibiotics for any fever above 38C. Small cell lung carcinoma: -will need arrangements for outpt follow-up prior to discharge. Hypokalemia: -2.9 on AM labs (02/26) -received 40meq IV, with improvement to 3.0; re-ordered 40meq -repeat BMP, and Mg in AM (2) Pancytopenia: (3) Small cell lung carcinoma: Supervising Physician Co-Signing Physician Notes I personally examined the patient and verified all bowden points of history and exam, discussed case, and agree with decision making with Dr Michaud. Patient feeling a bit better. Able to eat liquid diet without much difficulty. Grid Caster input appreciated. Vitals noted, in general he is awake and alert pleasant no distress. HEENT normocephalic atraumatic mucous members moist. Breathing unlabored no accessory muscle use good effort. Skin shows no rashes no pallor or icterus. Dysphasiaconcern on candidal esophagitis given his immune compromised state, also certainly quite possible to have radiation esophagitis. Symptom control, Diflucan, liquid diet, supportive care. Severe neutropenia/pancytopeniarelates chemo. Other than concern on esophagitis he is not showing any signs or symptoms of infection at this time. Follow closely. otherwise as above Subjective Pt feels about the same this morning, still having difficulty swallowing pills and soft foods but with the thinner liquids he has had less pain and difficulty. Family still thinks his voice is very minimized and that he continues to seem weaker than he had been. Review of Systems Constitutional: + weakness; no fever, no chills and no sweats Eyes: no diplopia and no worsening vision Respiratory: no cough and no dyspnea Cardiovascular: no chest pain, no palpitations and no edema Gastrointestinal: + pain with swallowing and + dysphagia; no abdominal pain Physical Exam Constitutional: + frail appearing and cooperative Eyes: PERRL and EOM intact bilaterally Neck: trachea midline and + neck tender Respiratory: normal respiratory effort; no cough and no stridor Auscultation: lungs clear to auscultation bilaterally; no crackles, no rales and no wheezes Cardiovascular: Rate/Rhythm: regular rate and regular rhythm Heart Sounds: normal S1 and normal S2; no gallop, no murmur and no cardiac rub Gastrointestinal (Abdomen): Inspection/Auscultation: abdomen not distended Percussion/Palpation: abdomen soft; abdomen nontender, no guarding and no hepatosplenomegaly Results & Data Vital Signs (Past 12 Hours) Vital Signs Temp Pulse Resp BP Pulse Ox 02/26/19 07:57 37.0 C 63 19 138/54 L 90 02/26/19 04:48 38.2 C H 74 18 131/54 L 92 Laboratory Results 02/26/19 02/26/19 02/25/19 Range/Units 05:33 05:33 16:53 WBC 0.03 L* (4.8-10.8) K/uL RBC 3.12 L (4.7-6.1) M/uL Hgb 9.6 L (14.0-18.0) g/dL Hct 27.3 L (42-52) % MCV 87.5 (80-100) fL MCH 30.8 (25-34) pg MCHC 35.2 (32-36) g/dL RDW Std Deviation 44.6 (36.4-46.3) fL RDW Coeff of Moreno 13.9 (11.5-14.5) % Plt Count 24 L* (130-400) K/uL MPV 9.7 (7.4-10.4) fL Immature Gran % (Auto) Cancelled Neut % (Auto) Cancelled Lymph % (Auto) Cancelled [place] % (Auto) Cancelled Eos % (Auto) Cancelled Baso % (Auto) Cancelled Immature Gran # (Auto) Cancelled Neut # (Auto) Cancelled Lymph # (Auto) Cancelled [place] # (Auto) Cancelled Eos # (Auto) Cancelled Baso # (Auto) Cancelled Neutrophils % (Manual) Cancelled Band Neutrophils % Cancelled Lymphocytes % (Manual) Cancelled Prolymphocyte % Cancelled Reactive Lymphs % (Man) Cancelled Monocytes % (Manual) Cancelled Eosinophils % (Manual) Cancelled Basophils % (Manual) Cancelled Metamyelocytes % (Man) Cancelled Myelocytes % (Man) Cancelled Promyelocytes % (Man) Cancelled Blast Cells % (Manual) Cancelled Plasma Cell % (Manual) Cancelled Other Cells % Cancelled Nucleated RBC % Cancelled Neutrophils # (Manual) Cancelled Band Neutrophils # Cancelled Total Absolute Neuts Cancelled Lymphocytes # (Manual) Cancelled Prolymphocyte # Cancelled Reactive Lymphs # Cancelled Total Abs Lymphocytes Cancelled Monocytes # (Manual) Cancelled Eosinophils # (Manual) Cancelled Basophils # (Manual) Cancelled Metamyelocytes # (Man) Cancelled Myelocytes # (Manual) Cancelled Promyelocytes # (Man) Cancelled Blast Cells # (Man) Cancelled Plasma Cell # (Manual) Cancelled Other Cells # Cancelled Nucleated RBCs # (Man) Cancelled Hypersegmented Neuts Cancelled Hyposegmented Neuts Cancelled Hypogranular Neuts Cancelled Large Granular Lymphs Cancelled # Lrg Granular Lymphs Cancelled Hairy Cells Cancelled Smudge Cells Cancelled Toxic Granulation Cancelled Toxic Vacuolation Cancelled Dohle Bodies Cancelled Moi Rods Cancelled Hypogranular Platelets Cancelled Clumped Platelets Cancelled Giant Platelets Cancelled Platelet Satelliting Cancelled RBC Morphology Cancelled Polychromasia Cancelled Hypochromasia Cancelled Poikilocytosis Cancelled Basophilic Stippling Cancelled Anisocytosis Cancelled Microcytosis Cancelled Macrocytosis Cancelled Spherocytes Cancelled Pappenheimer Bodies Cancelled Sickle Cells Cancelled Target Cells Cancelled Tear Drop Cells Cancelled Ovalocytes Cancelled Stomatocytes Cancelled Rider-[place] Bodies Cancelled Echinocytes Cancelled Acanthocytes (Spur) Cancelled Rouleaux Cancelled RBC Agglutinates Cancelled Schistocytes Cancelled RBC Morph Comment Cancelled Sezary Cell Cancelled Sodium 148 H (136-145) mmol/L Potassium 2.9 L D (3.5-5.1) mmol/L Chloride 116 H (98-107) mmol/L Carbon Dioxide 23 (21-32) mmol/L Anion Gap 9.0 (3-11) BUN 17 (7-18) mg/dl Creatinine 0.69 (0.6-1.4) mg/dl Est Cr Clr Drug Dosing 77.5 ml/min Est GFR ( Amer) 110.7 Est GFR (Non-Af Amer) 95.5 BUN/Creatinine Ratio 24.2 H (10-20) Glucose 115 H (70-99) mg/dl Calcium 7.8 L (8.5-10.1) mg/dl Urine Color Yellow Urine Appearance Clear (Clear) Urine pH 5.5 (4.5-7.5) Ur Specific [place] 1.018 (1.000-1.030) Urine Protein 2+ H (Negative) Urine Glucose (UA) Negative (Negative) Urine Ketones 2+ H (Negative) Urine Blood Negative (Negative) Urine Nitrite Negative (Negative) Urine Bilirubin Negative (Negative) Urine Urobilinogen Negative (Negative) Ur Leukocyte Esterase Negative (Negative) Urine WBC (Auto) 1-5 (0-5) /hpf Urine RBC (Auto) 0-4 (0-4) /hpf U Hyaline Cast (Auto) 5-10 H (0-5) /lpf U Epithel Cells (Auto) 10-20 H (0-5) /lpf Urine Bacteria (Auto) Negative (Negative) Medications Administered Current Inpatient Medications Acetaminophen (Tylenol) 650 mg PO Q4H PRN PRN Reason: Pain Stop: 03/28/19 11:27 Last Admin: 02/26/19 13:03 Dose: 650 mg Documented by: Acetaminophen (Tylenol) 650 mg PO Q4H PRN PRN Reason: pain/fever Stop: 03/28/19 13:20 Al Hydrox/Mg Hydrox/Simethicone (Maalox) 30 ml PO Q6H PRN PRN Reason: Dyspepsia Stop: 03/28/19 13:20 Amlodipine Besylate (Norvasc) [address] [facility] Stop: 03/28/19 08:59 Last Admin: 02/26/19 08:47 Dose: 5 mg Documented by: Dexamethasone 3.75 mg/Nystatin 30 ml/Diphenhydramine HCl 300 mg/Sucrose 45 ml/Microcrystalline Cellulose 45 ml/ BARCODE IDENTIFIER 1 ea 0 mg PO Q4H PRN PRN Reason: Pain Stop: 03/27/19 22:29 Acetaminophen (Ofirmev) 1,000 mg in 100 mls @ 400 mls/hr IV Q8H PRN PRN Reason: Pain Stop: 03/27/19 15:04 Last Infusion: 02/26/19 05:17 Dose: Infused Documented by: Famotidine 20 mg/ Syringe 5 mls @ 2.5 mls/min IV BID [facility] Stop: 03/27/19 20:59 Last Admin: 02/26/19 08:53 Dose: 2.5 mls/min Documented by: Fluconazole (Diflucan) 100 mg in 50 mls @ 100 mls/hr IV Q24H [facility]; Protocol Stop: 03/06/19 22:29 Lactated Ringer's (Lr) 1,000 mls @ 125 mls/hr IV .Q8H [facility] Stop: 03/28/19 11:29 Last Admin: 02/26/19 11:43 Dose: 125 mls/hr Documented by: Levothyroxine Sodium (Synthroid) 25 mcg PO DAILYBB [facility] Stop: 03/28/19 06:29 Last Admin: 02/26/19 05:37 Dose: Not Given Documented by: Lidocaine HCl (Viscous Lidocaine 2%) 15 ml MT PRN PRN PRN Reason: Pain Stop: 03/27/19 15:04 Last Admin: 02/25/19 18:17 Dose: 15 ml Documented by: Losartan Potassium (Cozaar) 100 mg PO QAM [facility] Stop: 03/28/19 08:59 Last Admin: 02/26/19 08:46 Dose: 100 mg Documented by: Magnesium Hydroxide (Milk Of Magnesia) 30 ml PO Q6H PRN PRN Reason: Constipation Stop: 03/28/19 13:20 Miscellaneous (Order Awaiting Action) 1 ea N/A QS [facility] Stop: 03/28/19 00:00 Last Admin: 02/26/19 08:44 Dose: Not Given Documented by: Polyethylene Glycol (Miralax Powder Packet) 17 gm PO DAILY PRN PRN Reason: Constipation Stop: 03/28/19 13:20 PG Care Time/CCT Total # of Minutes Spent Total Time Spent with Patient: Total time spent is greater than 50% in coordination of care (as documented) at patient's floor/unit and/or counseling patient: Resident Activity Tracking Resident Involvement: Resident Care Provided Care Provided: Adult Hospital Medicine (1) Dysphagia Dysphagia type: unspecified Qualified Code(s): R13.10 - Dysphagia, unspecified
[2019-02-26 15:51] LABS: BUN Creatinine Ratio 16.1 (10-20); Calcium 8.2 mg/dl (8.5-10.1); Creatinine Clr Calc Pharmacy 59.2 ml/min; Est GFR (African American) 97.9; Est GFR (Non-African American) 84.5
[2019-02-26] MEDS: FLUCONAZOLE 100 MG/50 ML BAG IV SCH (22:12)
[2019-02-27] MEDS ORDERED: VANCOMYCIN CONSULT ACTIVE PRN ×2 (04:33→07:31)
[2019-02-27] MEDS ORDERED: PIPERACILL/TAZOBAC CONSULT ACTIVE PRN (04:33)
[2019-02-27] MEDS: LACTATED RINGER'S 1,000 ML IV SCH ×3 (04:34→23:54)
[2019-02-27] MEDS ORDERED: PIPERACILLIN/TAZOBACTAM 3.375 GM in DEXTROSE 5% 100 ML IV ONE (05:00)
[2019-02-27] MEDS ORDERED: VANCOMYCIN HCL 1,250 MG in SODIUM CHLORIDE 0.9% 250 ML IV SCH (05:00)
[2019-02-27] MEDS: LEVOTHYROXINE SODIUM 25 MCG TABLET PO SCH (05:10)
[2019-02-27 06:44] LABS: Hemoglobin 8.8 g/dL (14.0-18.0); Mean Corpuscular Hemoglobin 30.3 pg (25-34); Mean Corpuscular Hgb Conc 35.2 g/dL (32-36); Mean Corpuscular Volume 86.2 fL (80-100); Mean Platelet Volume 11.6 fL (7.4-10.4); Platelet Count 33 K/uL (130-400); RDW Coefficient of Variation 13.9 % (11.5-14.5); RDW Standard Deviation 43.6 fL (36.4-46.3); White Blood Count 0.05 K/uL (4.8-10.8)
[2019-02-27 07:07] LABS: BUN Creatinine Ratio 19.9 (10-20); Calcium 7.6 mg/dl (8.5-10.1); Creatinine Clr Calc Pharmacy 89.1 ml/min; Est GFR (African American) 114.9; Est GFR (Non-African American) 99.1; Magnesium 1.4 mg/dl (1.8-2.4); Potassium 2.9 mmol/L (3.5-5.1)
[2019-02-27] MEDS ORDERED: VANCOMYCIN HCL 1,000 MG in SODIUM CHLORIDE 0.9% 500 ML IV SCH (07:45)
[2019-02-27] MEDS: LOSARTAN POTASSIUM 50 MG TAB PO SCH (07:47)
[2019-02-27] MEDS: AMLODIPINE BESYLATE 5 MG TAB PO SCH (07:47)
--- NOTE | 2019-02-27 07:47 | XRay Report ---
XR chest 1V portable HISTORY: 73 years-old Male fever with neutropenia acute fever COMPARISON: Chest radiograph 02/25/2019, PET CT 01/31/2019 TECHNIQUE: Portable AP view of the chest FINDINGS: Mild asymmetric left hilar prominence redemonstrated. Cardiac silhouette is normal in size. Emphysema . Previously described right lower lobe mass with surrounding satellite nodules is better seen on com parison PET/CT. Subsegmental patchy ill-defined bibasilar opacities have progressed from comparison. No pneumothorax, pleural effusion or overt pulmonary edema. Degenerative changes of the shoulders and spine. IMPRESSION: 1. Interval development of left greater than right bibasilar opacities suggestive of atelectasis or p neumonitis. 2. Emphysema. 3. Previously reported right lower lobe mass is better seen on comparison PET/CT. The above report was generated using voice recognition software. It may contain grammatical, syntax o r spelling errors. Electronically signed by: Bravo Lazaro M.D. 02/27/2019 7:45 AM
[2019-02-27] MEDS: MAGNESIUM SULFATE / D5W 1 GM/100 ML BAG IV SCH ×2 (08:31→09:33)
[2019-02-27] MEDS: POTASSIUM CHLORIDE / WTR 10 MEQ/100 ML PLCT IV SCH ×4 (08:31→11:40)
[2019-02-27] MEDS: PIPERACILLIN/TAZOBACTAM 3.375 GM in DEXTROSE 5% 100 ML IV SCH ×2 (10:40→18:01)
[2019-02-27] MEDS: FAMOTIDINE 20 MG in SYRINGE 3 ML IV SCH ×2 (10:40→21:38)
--- NOTE | 2019-02-27 11:08 | Family Medicine Progress Note ---
Date of Service February 27, 2019 Assessment & Plan (1) Dysphagia: 73 y/o M w/ Small Cell Carcinoma of lung, presented with dysphagia and odynophagia for the last week. Currently receiving chemotherapy and radiation treatment. Dysphagia: -severely low ANC; continue IV fluconazole -presumptive esophageal candidiasis vs radiation esophagitis vs chemo-induced mucositis -started tylenol suspension for pain relief Pancytopenia: -fever to Tmax 38.2 C, overnight; uncertain source, no maintained temps -blood cultures obtained after IV abx started -CXR demonstrated right bibasilar opacities suggestive of atelectasis or pneumonitis -neupogen 480 mcg SC daily per oncology should provide some benefit for shelter protection -continue IV Vanc & Zosyn for coverage of potential hospital acquired sources Small cell lung carcinoma: -will need arrangements for outpt follow-up prior to discharge. Hypokalemia/Hypomagnesemia: -K=2.9 on AM labs (02/27) -Mg=1.4 on AM labs (02/27) -received 40meq IV potassium -received 2g IV magnesium -repeat BMP, and Mg in AM Supervising Physician Co-Signing Physician Notes I personally examined the patient and verified all bowden points of history and exam, discussed case, and agree with decision making with Dr Michaud. Swallowing feels about the same. Did not feel his fever. No chest pain/shortness of breath. He does have a chronic cough but it is not new or different in its been in months. No urinary symptoms. No other new focal complaints. Vitals noted, in general he is awake and alert pleasant no distress. HEENT normocephalic atraumatic mucous members moist. Cardio regular without rubs murmurs or gallops breathing unlabored no accessory muscle use good effort, scattered wet sounding rhonchi, no wheezing. Skin shows no rashes no pallor or icterus. Fevergiven his profound neutropenia have to account for the potential of a nosocomial infection. Initiated vancomycin and Zosyn. Blood culture sent (unfortunately after first dose of Zosyn was given). No clear signs of pneumonia, but obviously this would be 1 of his most compromised places. Follow closely. No urinary symptoms. No evidence of cellulitis. No evidence of C. difficile/diarrhea. It is possible that the fever simply relates to his Zainab esophagitis/radiation esophagitis, or something simple such as atelectasis, but given his significantly compromised immune system, of the above treatment is ongoing. Dysphasiaconcern on candidal esophagitis given his immune compromised state, also certainly quite possible to have radiation esophagitis. Symptoms are about the same. Continue Diflucan, supportive care, liquid diet. Severe neutropenia/pancytopeniarelates to his chemotherapy. Oncology input appreciated. otherwise as above Subjective Pt feels about the same this morning, still having difficulty swallowing pills and soft foods but with the thinner liquids he has had less pain and difficulty. Family still thinks his voice is very minimized and that he continues to seem weaker than he had been. Had a fever to 38.2 C, but felt nothing throughout this time. Review of Systems Constitutional: + weakness; no fever, no chills and no sweats Gastrointestinal: + pain with swallowing and + dysphagia; no abdominal pain Physical Exam Constitutional: + frail appearing and cooperative Eyes: PERRL and EOM intact bilaterally Neck: trachea midline and + neck tender Respiratory: normal respiratory effort; no cough and no stridor Auscultation: lungs clear to auscultation bilaterally; no crackles, no rales and no wheezes Cardiovascular: Rate/Rhythm: regular rate and regular rhythm Heart Sounds: normal S1 and normal S2; no gallop, no murmur and no cardiac rub Gastrointestinal (Abdomen): Inspection/Auscultation: abdomen not distended Percussion/Palpation: abdomen soft; abdomen nontender, no guarding and no hepatosplenomegaly Results & Data Vital Signs (Past 12 Hours) Vital Signs Temp Pulse Resp BP Pulse Ox 02/27/19 07:49 81 20 92 02/27/19 07:34 36.9 C 77 20 111/65 88 L 02/27/19 04:00 38.1 C H 82 18 133/66 90 02/27/19 00:17 37.4 C 72 19 151/73 H 93 Laboratory Results 02/27/19 02/27/19 02/26/19 Range/Units 05:59 05:59 14:48 WBC 0.05 L* (4.8-10.8) K/uL RBC 2.90 L (4.7-6.1) M/uL Hgb 8.8 L (14.0-18.0) g/dL Hct 25.0 L (42-52) % MCV 86.2 (80-100) fL MCH 30.3 (25-34) pg MCHC 35.2 (32-36) g/dL RDW Std Deviation 43.6 (36.4-46.3) fL RDW Coeff of Moreno 13.9 (11.5-14.5) % Plt Count 33 L (130-400) K/uL MPV 11.6 H (7.4-10.4) fL Immature Gran % (Auto) Cancelled Neut % (Auto) Cancelled Lymph % (Auto) Cancelled [place] % (Auto) Cancelled Eos % (Auto) Cancelled Baso % (Auto) Cancelled Immature Gran # (Auto) Cancelled Neut # (Auto) Cancelled Lymph # (Auto) Cancelled [place] # (Auto) Cancelled Eos # (Auto) Cancelled Baso # (Auto) Cancelled Neutrophils % (Manual) Cancelled Band Neutrophils % Cancelled Lymphocytes % (Manual) Cancelled Prolymphocyte % Cancelled Reactive Lymphs % (Man) Cancelled Monocytes % (Manual) Cancelled Eosinophils % (Manual) Cancelled Basophils % (Manual) Cancelled Metamyelocytes % (Man) Cancelled Myelocytes % (Man) Cancelled Promyelocytes % (Man) Cancelled Blast Cells % (Manual) Cancelled Plasma Cell % (Manual) Cancelled Other Cells % Cancelled Nucleated RBC % Cancelled Neutrophils # (Manual) Cancelled Band Neutrophils # Cancelled Total Absolute Neuts Cancelled Lymphocytes # (Manual) Cancelled Prolymphocyte # Cancelled Reactive Lymphs # Cancelled Total Abs Lymphocytes Cancelled Monocytes # (Manual) Cancelled Eosinophils # (Manual) Cancelled Basophils # (Manual) Cancelled Metamyelocytes # (Man) Cancelled Myelocytes # (Manual) Cancelled Promyelocytes # (Man) Cancelled Blast Cells # (Man) Cancelled Plasma Cell # (Manual) Cancelled Other Cells # Cancelled Nucleated RBCs # (Man) Cancelled Hypersegmented Neuts Cancelled Hyposegmented Neuts Cancelled Hypogranular Neuts Cancelled Large Granular Lymphs Cancelled # Lrg Granular Lymphs Cancelled Hairy Cells Cancelled Smudge Cells Cancelled Toxic Granulation Cancelled Toxic Vacuolation Cancelled Dohle Bodies Cancelled Moi Rods Cancelled Hypogranular Platelets Cancelled Clumped Platelets Cancelled [place] Platelets Cancelled Platelet Satelliting Cancelled RBC Morphology Cancelled Polychromasia Cancelled Hypochromasia Cancelled Poikilocytosis Cancelled Basophilic Stippling Cancelled Anisocytosis Cancelled Microcytosis Cancelled Macrocytosis Cancelled Spherocytes Cancelled Pappenheimer Bodies Cancelled Sickle Cells Cancelled Target Cells Cancelled Tear Drop Cells Cancelled Ovalocytes Cancelled Stomatocytes Cancelled [place]ider-[place] Bodies Cancelled Echinocytes Cancelled Acanthocytes (Spur) Cancelled Rouleaux Cancelled RBC Agglutinates Cancelled Schistocytes Cancelled RBC Morph Comment Cancelled Sezary Cell Cancelled Sodium 145 146 H (136-145) mmol/L Potassium 2.9 L 3.0 L (3.5-5.1) mmol/L Chloride 113 H 112 H (98-107) mmol/L Carbon Dioxide 26 25 (21-32) mmol/L Anion Gap 6.0 9.0 (3-11) BUN 13 15 (7-18) mg/dl Creatinine 0.63 0.91 (0.6-1.4) mg/dl Est Cr Clr Drug Dosing 89.1 59.2 ml/min Est GFR ( Amer) 114.9 97.9 Est GFR (Non-Af Amer) 99.1 84.5 BUN/Creatinine Ratio 19.9 16.1 (10-20) Glucose 117 H 210 H (70-99) mg/dl Calcium 7.6 L 8.2 L (8.5-10.1) mg/dl Magnesium 1.4 L (1.8-2.4) mg/dl Medications Administered Current Inpatient Medications Acetaminophen (Tylenol) 650 mg PO Q4H PRN PRN Reason: Pain Stop: 03/28/19 11:27 Last Admin: 02/26/19 13:03 Dose: 650 mg Documented by: Acetaminophen (Tylenol) 650 mg PO Q4H PRN PRN Reason: pain/fever Stop: 03/28/19 13:20 Al Hydrox/Mg Hydrox/Simethicone (Maalox) 30 ml PO Q6H PRN PRN Reason: Dyspepsia Stop: 03/28/19 13:20 Amlodipine Besylate (Norvasc) 5 mg PO QAM [facility] Stop: 03/28/19 08:59 Last Admin: 02/27/19 07:47 Dose: 5 mg Documented by: Dexamethasone 3.75 mg/Nystatin 30 ml/Diphenhydramine HCl 300 mg/Sucrose 45 ml/Microcrystalline Cellulose 45 ml/ BARCODE IDENTIFIER 1 ea 0 mg PO Q4H PRN PRN Reason: Pain Stop: 03/27/19 22:29 Acetaminophen (Ofirmev) 1,000 mg in 100 mls @ 400 mls/hr IV Q8H PRN PRN Reason: Pain Stop: 03/27/19 15:04 Last Infusion: 02/26/19 05:17 Dose: Infused Documented by: Famotidine 20 mg/ Syringe 5 mls @ 2.5 mls/min IV BID [facility] Stop: 03/27/19 20:59 Last Admin: 02/27/19 10:40 Dose: 2.5 mls/min Documented by: Fluconazole (Diflucan) 100 mg in 50 mls @ 100 mls/hr IV Q24H [facility]; Protocol Stop: 03/06/19 22:29 Last Infusion: 02/26/19 23:56 Dose: Infused Documented by: Lactated Ringer's (Lr) 1,000 mls @ 125 mls/hr IV .Q8H [facility] Stop: 03/28/19 11:29 Last Admin: 02/27/19 04:34 Dose: 125 mls/hr Documented by: Piperacillin Sod/Tazobactam (Sod 3.375 gm/ Dextrose) 115 mls @ 28.75 mls/hr IV Q8H [facility]; Protocol Stop: 03/01/19 09:59 Last Admin: 02/27/19 10:40 Dose: 28.8 mls/hr Documented by: Potassium Chloride (K Fredy / Wtr) 10 meq in 100 mls @ 100 mls/hr IV Q1H [facility] Stop: 02/27/19 11:59 Last Admin: 02/27/19 10:40 Dose: 100 mls/hr Documented by: Levothyroxine Sodium (Synthroid) 25 mcg PO DAILYBB [facility] Stop: 03/28/19 06:29 Last Admin: 02/27/19 05:10 Dose: 25 mcg Documented by: Lidocaine HCl (Viscous Lidocaine 2%) 15 ml MT PRN PRN PRN Reason: Pain Stop: 03/27/19 15:04 Last Admin: 02/25/19 18:17 Dose: 15 ml Documented by: Losartan Potassium (Cozaar) 100 mg PO QAM [facility] Stop: 03/28/19 08:59 Last Admin: 02/27/19 07:47 Dose: 100 mg Documented by: Magnesium Hydroxide (Milk Of Magnesia) 30 ml PO Q6H PRN PRN Reason: Constipation Stop: 03/28/19 13:20 Miscellaneous (Order Awaiting Action) 1 ea N/A QS [facility] Stop: 03/28/19 00:00 Last Admin: 02/27/19 07:47 Dose: Not Given Documented by: Miscellaneous Information (Consult) 1 ea N/A UD PRN PRN Reason: Consult Stop: 03/29/19 04:32 Miscellaneous Information (Consult) 1 ea N/A UD PRN PRN Reason: Consult Stop: 03/29/19 04:32 Polyethylene Glycol (Miralax Powder Packet) 17 gm PO DAILY PRN PRN Reason: Constipation Stop: 03/28/19 13:20 PG Care Time/CCT Total # of Minutes Spent Total Time Spent with Patient: Total time spent is greater than 50% in coordination of care (as documented) at patient's floor/unit and/or counseling patient: Resident Activity Tracking Resident Involvement: Resident Care Provided Care Provided: Adult Hospital Medicine (1) Dysphagia Dysphagia type: unspecified Qualified Code(s): R13.10 - Dysphagia, unspecified
--- NOTE | 2019-02-27 16:39 | Pharmacy Report ---
Pharmacy Abx Initial Consult - Date of Service February 27, 2019 - Pharmacy Dosing Scope Date of Consult: 02/27/19 Consultation requested by: Dr. Neville Pharmacy is consulted to initiate Vancomycin and Zosyn IV dosing therapy, order appropriate labs and adjust drug dose/frequency. - Subjective The patient is a 73 year old M admitted on 02/26/19 13:21. - Objective Height: 5 ft 9 in Weight: 58.6 kg Vital Signs (Past 12hrs): Vital Signs Temp Pulse Resp BP Pulse Ox 02/27/19 14:59 37.1 C 90 20 121/74 92 02/27/19 11:00 37.0 C 91 H 18 132/76 91 02/27/19 07:49 81 20 92 02/27/19 07:34 36.9 C 77 20 111/65 88 L Lab Results (24hrs): Laboratory Tests (24 Hours) 02/27/19 02/27/19 05:59 05:59 WBC 0.05 L* Neut # (Auto) Cancelled Creatinine 0.63 Est Cr Clr Drug Dosing 89.1 Micro Results: 02/26/19 14:35 Gram Stain - Final Sputum, Expectorated 02/27/19 08:44 Aerobic Blood Culture - Pending Blood Anaerobic Blood Culture - Pending 02/27/19 08:40 Aerobic Blood Culture - Pending Blood Anaerobic Blood Culture - Pending - Risk Factors for Resistance * Immunocompromised (chronic steroid therapy, chemotherapy, immunomodulators) - Assessment & Plan Assessment 73 year old M with Small Cell lung cancer presenting with Pancytopenia and Fever about 38 Plan Vancomycin and Zosyn for Empiric treatment of Pancytopenia Vancomycin IV * Estimated PK Parameters: Vd 0.7 L/kg, Fer 0.078 hr-1, t1/2 9 hr * Loading dose: 1250 mg (22.2 mg/kg) * Maintenance dose: 750 mg IV (13 mg/kg) every 12 hours * Trough/Random level will be ordered if therapy extends beyond 48 hours Piperacillin/tazobactam * 3.375 g bolus administered over 30 minutes, then 3.375 g IV extended infusion every 8 hours for CrCl greater than 20 mL/min Pharmacy will continue to follow and will adjust dose/frequency as necessary. Thank you.
[2019-02-27] MEDS: VANCOMYCIN HCL 750 MG in SODIUM CHLORIDE 0.9% 250 ML IV SCH (17:20)
[2019-02-27] MEDS: DEXAMETHASONE CONC 3.75 MG, NYSTATIN 30 ML, DiphenhydrAMINE Syrup 300 MG, ORA-SWEET SYR... PO PRN (19:09)
[2019-02-27] MEDS ORDERED: FILGRASTIM 300 MCG/ML VIAL SQ ONE (19:54)
[2019-02-27] MEDS: FLUCONAZOLE 100 MG/50 ML BAG IV SCH (21:39)
[2019-02-28] MEDS: PIPERACILLIN/TAZOBACTAM 3.375 GM in DEXTROSE 5% 100 ML IV SCH ×3 (02:03→18:41)
[2019-02-28] MEDS: VANCOMYCIN HCL 750 MG in SODIUM CHLORIDE 0.9% 250 ML IV SCH ×2 (05:07→18:12)
[2019-02-28] MEDS: LEVOTHYROXINE SODIUM 25 MCG TABLET PO SCH (06:16)
[2019-02-28 06:57] LABS: Hematocrit (blood only) 27.4 % (42-52); Hemoglobin 9.6 g/dL (14.0-18.0); Mean Corpuscular Hemoglobin 30.4 pg (25-34); Mean Corpuscular Volume 86.7 fL (80-100); Mean Platelet Volume 10.3 fL (7.4-10.4); Platelet Count 32 K/uL (130-400); RDW Coefficient of Variation 14.1 % (11.5-14.5); Red Blood Count 3.16 M/uL (4.7-6.1); White Blood Count 0.19 K/uL (4.8-10.8)
[2019-02-28] MEDS: LOSARTAN POTASSIUM 50 MG TAB PO SCH (07:36)
[2019-02-28] MEDS: LACTATED RINGER'S 1,000 ML IV SCH ×2 (07:36→21:59)
[2019-02-28 07:37] LABS: BUN Creatinine Ratio 16.5 (10-20); Calcium 7.8 mg/dl (8.5-10.1); Creatinine Clr Calc Pharmacy 75.9 ml/min; Est GFR (African American) 107.6; Est GFR (Non-African American) 92.8; Magnesium 1.8 mg/dl (1.8-2.4); Potassium 2.7 mmol/L (3.5-5.1)
[2019-02-28] MEDS: AMLODIPINE BESYLATE 5 MG TAB PO SCH (07:37)
[2019-02-28] MEDS: DEXAMETHASONE CONC 3.75 MG, NYSTATIN 30 ML, DiphenhydrAMINE Syrup 300 MG, ORA-SWEET SYR... PO PRN ×2 (08:50→18:08)
[2019-02-28] MEDS: POTASSIUM CHLORIDE / WTR 10 MEQ/100 ML PLCT IV SCH ×4 (08:53→12:46)
[2019-02-28] MEDS: FILGRASTIM 480 MCG/1.6 ML VIAL SQ SCH (08:53)
--- NOTE | 2019-02-28 08:59 | XRay Report ---
XR chest 1V portable HISTORY: Cough. crackles on exam COMPARISON: Chest 02/27/2019. FINDINGS: No pneumothorax. No pleural effusions. The heart is stable in size. Left basilar linear den sities are again noted. Mild perihilar interstitial thickening also persists. The previously reported right lower lobe mass is better appreciated on the recent PET/CT. IMPRESSION: 1. No change in the mild interstitial thickening and left basilar densities. This may represent atele ctasis. 2. The patient's right lower lobe mass is better appreciated on a prior PET/CT. Electronically signed by: Juan Salazar M.D. 02/28/2019 8:58 AM
--- NOTE | 2019-02-28 09:26 | Progress Note ---
DATE: 02/28/2019 MEDICAL ONCOLOGY PROGRESS NOTE DIAGNOSES: 1. Dysphagia, radiation induced versus candidal esophagitis. 2. Pancytopenia, attributable to chemotherapy. 3. Extensive stage small cell lung cancer. 4. Electrolyte dysfunction. SUBJECTIVE: Mr. Anne is a pleasant 73-year-old gentleman well known to [facility] with recent diagnosis of small cell lung cancer. He recently completed his first cycle of chemotherapy and unfortunately became profoundly pancytopenic, which would suggest he may have a bone marrow involvement. Bone marrow biopsy and aspiration was not performed, but again with a dramatic drop in his counts, I suspect he may have an infiltrating disease. In regards to the dysphagia, appropriately he has been placed on local therapies as well as antifungal coverage. He also received subcutaneous granulocyte colony stimulating growth factor over the weekend. His white count remains profoundly decreased and will continue Neupogen. He has slowly started with some p.o. intake. He reports moving his bowels. He denies any abdominal pain at this time. Nursing reports no overnight difficulties otherwise. OBJECTIVE GENERAL: A pleasant 73-year-old gentleman in no acute distress. VITAL SIGNS: Temperature 36.3, pulse 83, respiratory rate 17, blood pressure 130/73. SKIN: Without rash or lesion. HEENT: Oral mucosa without erythema or ulceration. HEART: Regular rate and rhythm. LUNGS: Clear to auscultation bilaterally. ABDOMEN: Soft, nontender, nondistended. EXTREMITIES: No clubbing, cyanosis or edema. NEUROLOGICAL: Grossly intact. LABORATORY DATA: WBC count 190, hemoglobin 9.6, platelet count 32,000. Sodium 142, potassium 2.7, chloride 108, carbon dioxide 28, BUN 12, creatinine 0.74, magnesium 1.8. IMPRESSION: 1. Dysphagia, radiation induced versus candidiasis. 2. Pancytopenia, attributable to chemotherapy. 3. Electrolyte dysfunction. 4. Extensive stage small cell lung cancer. PLAN: I visited with Mr. Anne this morning. Apparently, he is making slow but steady progress. His throat remains quite sore. Would continue antifungal coverage and provide local remedies as well. Encourage protein intake as tolerated. Potassium remains quite low and would replace intravenously today, his magnesium has been repleted. Clearly upon recovery, will need to look at Juan's dosing and consider reduction moving forward. Would also continue Neupogen 480 mcg daily for the next couple of days. We will continue to follow Mr. Anne on a daily basis during his hospital stay. I appreciate the assistance in caring for this very pleasant but unfortunate gentleman.
--- NOTE | 2019-02-28 09:28 | Family Medicine Progress Note ---
Date of Service February 28, 2019 Assessment & Plan (1) Neutropenia with fever: 73 yo M PMHx metastatic SCC of lung presents with continued dysphagia now with fever yesterday in the setting of pancytopenia due to chemotherapy. - Escalated antibiotics to Vanc and Zosyn given neutropenia and fever of 38.1 at 4AM 02/27/19, afebrile since this episode, will consider deescalation tomorrow morning if continues to be afebrile - Continues to receive fluconazole 100mg IV daily for possible fungal es ophagitis - UA negative for infection, BCx x2 pending, CXR ordered negative for pneumonia but possible mild atalectasis - Receiving Neupogen by heme/onc Present on Admission?: No (2) Dysphagia: - Zainab esophagitis vs. radiation esophagitis vs. chemotherapy induced mucositis. - Continuing Fluconazole 100mg daily IV. - Tylenol as needed for pain. - Liquid diet Present on Admission?: Yes (3) Chest congestion: - CXR negative for acute infectious process. - Flutter valve and incentive spirometer to help clear secretions and for atalectasis. Present on Admission?: No (4) Hypokalemia: - K 2.7 this morning, have repleted 40 IV 40 PO liquid, will recheck this afternoon. - Magnesium repleted. (5) Lung cancer: - Continued care per heme/onc, will need follow up outpatient. Dispo: Med/Surg DVT PPx: SCDs FEN: Liquid diet, fluids PO and IV LR 75 mL/hr Code Status: FULL CODE Present on Admission?: Yes Supervising Physician Co-Signing Physician Notes Resident Physician Supervision Note: I independently interviewed and examined the patient and verified the bowden history and physical, reviewed labs and image studies, discussed the case with the resident Dr. Garcia and agree with the findings and care plan. Subjective No acute events overnight, pt continues to have dysphagia and odynophagia making it difficult to swallow pills and even liquids. Reports the pain is about the same, but better when he does not talk. New today is some chest congestion, feels as though he "cannot get the phlegm up". No fevers or chills, no trouble breathing. Review of Systems Constitutional: + weakness; no fever, no chills and no sweats Ear, Nose, Mouth, Throat: + sore throat, + dysphagia and + pain with swallowing Respiratory: + chest congestion; no dyspnea and no wheezing Cardiovascular: no chest pain and no palpitations Gastrointestinal: + pain with swallowing and + dysphagia; no abdominal pain, no nausea, no vomiting, no constipation and no diarrhea/loose stools Physical Exam Constitutional: well developed and + cachectic ENMT: no intraoral lesions, some chapped lips. Respiratory: normal respiratory effort transmitted upper respiratory sounds, lungs clear Cardiovascular: RRR, no murmur, no edema Gastrointestinal (Abdomen): Inspection/Auscultation: normal bowel sounds Percussion/Palpation: abdomen soft; abdomen nontender Skin: no rashes, warm and dry Psychiatric: A+Ox3, euthymic affect Results & Data Vital Signs (Past 12 Hours) Vital Signs Temp Pulse Pulse Resp BP Pulse Ox 02/28/19 07:21 36.3 C L 83 17 130/73 91 02/28/19 02:37 37.2 C 79 19 128/67 90 02/27/19 23:22 37.4 C 81 16 131/74 91 PG Care Time/CCT Total # of Minutes Spent Total Time Spent with Patient: Total time spent is greater than 50% in coordination of care (as documented) at patient's floor/unit and/or counseling patient: Resident Activity Tracking Resident Involvement: Resident Care Provided Care Provided: Adult Hospital Medicine (1) Dysphagia Dysphagia type: unspecified Qualified Code(s): R13.10 - Dysphagia, unspecified (2) Lung cancer Laterality: unspecified laterality Lung location: unspecified part of lung Qualified Code(s): C34.90 - Malignant neoplasm of unspecified part of unspecified bronchus or lung
--- NOTE | 2019-02-28 10:18 | Gastrointestinal Consultation ---
Date of Consultation February 28, 2019 Assessment & Plan (1) Small cell lung carcinoma: (2) Odynophagia: Differential diagnosis includes: 1) Mucositis 2) Radiation esophagitis 3) Zainab esophagitis 4) GERD Recommend Protonix 40 mg IV BID Recommend Diflucan 200 mg IV today, then 100 mg IV daily for 10 days Recommend Magic mouthwash (1:1:1 mix of benadryl, maalox, and viscous lidocaine): Swish and swallow 15 ml QID Barium swallow, when his pancytopenia improves, as it is most likely related to chemotherapy Dr. Flower is covering this weAssessment: [f__age] Plan:ekend for any questions related to GI (3) Pancytopenia: History of Present Illness Attending Physician: Olivia Norris MD Allergies Allergy/AdvReac Type Severity Reaction Status Date / Time lisinopril AdvReac Verified 02/25/19 12:32 Home Medications Home Medications Medication Instructions Recorded Confirmed Type amlodipine 5 mg tablet 5 mg PO QAM 12/31/18 02/25/19 History aspirin 81 mg tablet,delayed 81 mg PO Q2D tab 12/31/18 02/25/19 History release levothyroxine 25 mcg tablet 25 mcg PO QAM 12/31/18 02/25/19 History metronidazole 0.75 % lotion 1 appln TOP QAM 01/27/19 02/25/19 History acetaminophen [Tylenol Extra 500 mg PO Q6H PRN 02/25/19 02/25/19 History Strength] losartan 100 mg PO QAM 02/25/19 02/25/19 History Patient History Medical History Acne rosacea (Acute) Anemia (Acute) Brain tumor (Acute) Dermatitis (Acute) Hoarseness (Acute) Hypertension (Acute) Hypothyroid (Acute) Impaired fasting glucose (Acute) Lung mass (Acute) Onychomycosis (Acute) Small cell carcinoma of lung (Acute) Surgical History History of arthroscopy of knee surgery 40 yrs ago Family History Father Myocardial infarction Brother , Myocardial infarction Sister , age 83 Diabetes Mother , age 96 Diabetes Stroke syndrome Sister No problems noted. Brother Coronary heart disease valve replacement Son No problems noted. Social History Preferred Language: E[place] Communication Ability: Effective Visual Impairment: Limited Hearing Ability: Normal [employer] Required: No Beliefs That Will Affect Care: None marital status: Current Living Situation: Spouse current occupational status: retired current occupation: retired maintence worker Other Information That Helps Us Care for You: No Feels Safe at Home: Yes Safety Concerns: Feels Safe At This Time Smoking Status: Former smoker Cigarettes Per Day: 30 ; Do You Dip or Chew Tobacco: No ; Second Hand Exposure: No ; Tobacco Cessation Education Requested by Patient: No Hx Alcohol Use: Yes Alcohol type: beer Hx Substance Use: No Childhood Exposure to Second-Hand Smoke: Yes Results & Data Vital Signs (Past 12 Hours) Vital Signs Temp Pulse Pulse Resp BP Pulse Ox 02/28/19 07:21 36.3 C L 83 17 130/73 91 02/28/19 02:37 37.2 C 79 19 128/67 90 02/27/19 23:22 37.4 C 81 16 131/74 91 PG Care Time/CCT Total # of Minutes Spent Total Time Spent with Patient: Total time spent is greater than 50% in coordination of care (as documented) at patient's floor/unit and/or counseling patient: Assessment: [f__age] Plan:[] use f4 to go to next bracket []. [] use f4 to go to next bracket []. [] use f4 to go to next bracket []. [] use f4 to go to next bracket .sig Casper Beard MD Gastroenterology. Thank you for allowing me to participate in the care of this patient.
[2019-02-28] MEDS: FAMOTIDINE 20 MG in SYRINGE 3 ML IV SCH ×2 (10:28→21:58)
[2019-02-28] MEDS ORDERED: POTASSIUM CHLORIDE 20 MEQ/15 ML UDC PO STA (11:05)
[2019-02-28] MEDS: FLUCONAZOLE 100 MG/50 ML BAG IV SCH (22:30)
[2019-03-01] MEDS: DEXAMETHASONE CONC 3.75 MG, NYSTATIN 30 ML, DiphenhydrAMINE Syrup 300 MG, ORA-SWEET SYR... PO PRN ×3 (00:34→17:47)
[2019-03-01] MEDS: PIPERACILLIN/TAZOBACTAM 3.375 GM in DEXTROSE 5% 100 ML IV SCH (01:56)
[2019-03-01] MEDS: LACTATED RINGER'S 1,000 ML IV SCH ×2 (05:31→19:01)
[2019-03-01] MEDS: VANCOMYCIN HCL 750 MG in SODIUM CHLORIDE 0.9% 250 ML IV SCH (05:31)
[2019-03-01] MEDS: LEVOTHYROXINE SODIUM 25 MCG TABLET PO SCH (05:31)
[2019-03-01] MEDS: AMLODIPINE BESYLATE 5 MG TAB PO SCH (07:43)
[2019-03-01] MEDS: LOSARTAN POTASSIUM 50 MG TAB PO SCH (07:43)
[2019-03-01 07:49] LABS: Hematocrit (blood only) 26.5 % (42-52); Hemoglobin 9.2 g/dL (14.0-18.0); Mean Corpuscular Hemoglobin 30.2 pg (25-34); Mean Corpuscular Hgb Conc 34.7 g/dL (32-36); Mean Corpuscular Volume 86.9 fL (80-100); Platelet Count 30 K/uL (130-400); RDW Coefficient of Variation 13.9 % (11.5-14.5); RDW Standard Deviation 44.3 fL (36.4-46.3); Red Blood Count 3.05 M/uL (4.7-6.1); White Blood Count 0.82 K/uL (4.8-10.8)
[2019-03-01 08:00] LABS: BUN Creatinine Ratio 14.3 (10-20); Calcium 7.8 mg/dl (8.5-10.1); Creatinine Clr Calc Pharmacy 105.8 ml/min; Est GFR (African American) 123.4; Est GFR (Non-African American) 106.5; Magnesium 1.6 mg/dl (1.8-2.4); Potassium 2.3 mmol/L (3.5-5.1)
[2019-03-01 08:06] LABS: Dohle Bodies 2+; Giant Platelets 2+; Toxic Granulation 3+
[2019-03-01 08:09] LABS: ALC (manual) 0.05 K/uL (1.2-3.4); ANC (manual) 0.69 K/uL (1.4-6.5); Blast # (manual) 0.01 K/uL (0-0); Blast Cells % (manual) 0.7 %; Eosinophils # (manual) 0.02 K/uL (0-0.5); Eosinophils % (manual) 2.2 %; Lymphocytes # (manual) 0.05 K/uL (1.2-3.4); Lymphocytes % (manual) 6.7 %; Metamyelocytes # (manual) 0.05 K/uL (0-0); Myelocytes # (manual) 0.01 K/uL (0-0); Myelocytes % (manual) 0.7 %; Neutrophils # (manual) 0.69 K/uL (1.4-6.5); Neutrophils % (manual) 83.7 %
[2019-03-01] MEDS ORDERED: HYDROmorphone INJ 1 MG/ML SYRINGE IV PRN (08:19)
--- NOTE | 2019-03-01 09:15 | Progress Note ---
DATE: 03/01/2019 MEDICAL ONCOLOGY PROGRESS NOTE DIAGNOSES: 1. Dysphagia, radiation induced versus candidal esophagitis. 2. Pancytopenia, attributable to chemotherapy. 3. Extensive stage small cell lung cancer. 4. Electrolyte dysfunction. SUBJECTIVE: Mr. Anne was seen and examined at bedside. Quite a notable difference in 24 hours. He is definitely a bit more brighter. His throat pain is less. Slowly improving his p.o. intake. Continues to receive subcutaneous granulocyte colony stimulating growth factor; however, his white cells remain in the neutropenic range. He reports no fever or chills overnight. Nursing reports no overnight difficulties. OBJECTIVE: GENERAL: A very pleasant 73-year-old gentleman, awake, alert and appropriate, in no acute distress. VITAL SIGNS: Temperature 36.7, pulse 64, respiratory rate is 18, blood pressure 131/65. SKIN: Without rash or lesion. HEENT: Oral mucosa without erythema or ulceration. HEART: Regular rate and rhythm. LUNGS: Clear to auscultation bilaterally. ABDOMEN: Soft, nontender, nondistended. EXTREMITIES: No clubbing, cyanosis or edema. NEUROLOGICAL: Grossly intact. LABORATORY DATA: WBC count 820, hemoglobin 9.2, platelet count 30,000. Sodium 140, potassium 2.3, chloride 104, carbon dioxide 29, creatinine 0.53, BUN 8, magnesium 1.6. RADIOGRAPHIC DATA: Chest x-ray from yesterday reveals no acuity. IMPRESSION: 1. Dysphagia/esophagitis. 2. Extensive stage small cell lung cancer. 3. Pancytopenia, attributable to chemotherapeutic effect. 4. Hypomagnesemia. 5. Hypokalemia. PLAN: Mr. Anne was seen and examined at bedside. Clearly, I think he is improving day to day. Took the liberty of ordering supplemental magnesium and potassium to replace. Also added p.r.n. Dilaudid for throat pain 1 mg q. 6-hour should suffice. Spoke to the resident caring for Mr. Anne, instructed her if medically stable to proceed with discharge making sure the patient has 3-4 days of antifungal coverage orally and maybe a small prescription of sales agent pest control service to help him alleviate pain until he recovers. Again, the profound myelosuppression, I suspect, may be attributable to intrinsic bone marrow metastatic disease. Therefore, Mr. Anne most likely will require a dose reduction moving forward. I did speak to his today, hopefully clarifying any concerns that she may have moving forward. Thank you again for assisting us in the care of this very pleasant complex gentleman.
[2019-03-01] MEDS: POTASSIUM CHLORIDE / WTR 10 MEQ/100 ML PLCT IV SCH ×4 (09:51→13:14)
[2019-03-01] MEDS: MAGNESIUM SULFATE / D5W 1 GM/100 ML BAG IV SCH ×4 (09:51→13:14)
[2019-03-01] MEDS: FAMOTIDINE 20 MG in SYRINGE 3 ML IV SCH (09:51)
[2019-03-01] MEDS: POTASSIUM CHLORIDE 20 MEQ/15 ML UDC PO STA ×2 (09:52→10:00)
[2019-03-01] MEDS: FILGRASTIM 480 MCG/1.6 ML VIAL SQ SCH (09:52)
[2019-03-01 13:34] LABS: BUN Creatinine Ratio 11.6 (10-20); Creatinine Clr Calc Pharmacy 101.9 ml/min; Est GFR (African American) 121.5; Est GFR (Non-African American) 104.8; Potassium 2.3 mmol/L (3.5-5.1)
--- NOTE | 2019-03-01 16:22 | Family Medicine Progress Note ---
Date of Service March 01, 2019 Assessment & Plan (1) Neutropenia with fever: 73 yo M PMHx metastatic SCC of lung with improving dysphagia on fluconazole and aferbile for 48 hours without signs or symptoms of infection. Neutropenic fever - On Vanc and Zosyn given neutropenia and fever of 38.1 at 4AM 02/27/19, afebrile since this episode, will consider deescalation tomorrow morning if continues to be afebrile - Continuing Fluconazole 100mg daily IV for fungal esophagitis, upon discharge will receive 3-4 days of PO fluconazole per oncology recs. - UA negative for infection, BCx x2 negative after 48 hours, CXR ordered negative for infection - Receiving Neupogen by heme/onc, last WBC 0.82 from 0.19 yesterday. Dysphagia - Zainab esophagitis vs. radiation esophagitis vs. chemotherapy induced mucositis. - Continuing Fluconazole 100mg daily IV, upon discharge will receive 3-4 days of PO fluconazole per oncology recs. - Tylenol as needed for pain. - Liquid diet. Poor Nutritional Status - Pt was able to eat more today than he has in over a week due to his dysphagia, have been giving IV fluids and repleting electrolytes as necessary - Want to ensure pt has proper PO intake prior to discharge. Chest congestion - resolved with use of flutter valve. - Continues to be afebrile. Hypkalemia/Hypomagnesemia - K 2.3 this morning, have repleted 40 IV 40 PO (10mg tablets) tablets as patient reported that the liquid burned going down, will recheck in AM. - Magnesium 1.6 this morning, repleted. Will recheck in AM. Metastatic Lung Cancer - Continued care per heme/onc, will need follow up outpatient. Dispo: Med/Surg DVT PPx: SCDs FEN: Liquid diet, fluids PO and IV LR 75 mL/hr, K and Mg repleted today Code Status: FULL CODE (2) Dysphagia: (3) Chest congestion: (4) Hypokalemia: (5) Lung cancer: (6) Poor nutrition: Supervising Physician Co-Signing Physician Notes Resident Physician Supervision Note: I independently interviewed and examined the patient and verified the bowden history and physical, reviewed labs and image studies, discussed the case with the resident Dr. Garcia and agree with the findings and care plan. Subjective No acute events overnight, pt continues to have dysphagia and odynophagia but much improved from yesterday. Is able to tolerate food much more and ate about 3/4 of his cream of wheat this morning. States that his chest congestion has resolved after flutter valve and continues to use the incentive spirometer. No fevers or chills, no shortness of breath, no chest pain or palpitations. No changes in bowels or bladder. Review of Systems Constitutional: no fever and no chills Ear, Nose, Mouth, Throat: + sore throat and + pain with swallowing Respiratory: no cough, no dyspnea and no wheezing Cardiovascular: no chest pain, no palpitations and no edema Gastrointestinal: no abdominal pain, no constipation and no diarrhea/loose stools Genitourinary: no dysuria Physical Exam Constitutional: well developed and + cachectic Respiratory: normal respiratory effort, lungs clear to auscultation Cardiovascular: RRR, no murmur, no edema Gastrointestinal (Abdomen): Inspection/Auscultation: normal bowel sounds Percussion/Palpation: abdomen soft; abdomen nontender Skin: no rashes, warm and dry Psychiatric: A+Ox3, euthymic affect Results & Data Vital Signs (Past 12 Hours) Vital Signs Temp Pulse Resp BP Pulse Ox 03/01/19 15:20 37.2 C 70 17 136/77 91 03/01/19 11:50 36.4 C L 68 17 145/65 H 93 03/01/19 06:54 36.7 C 64 18 131/65 92 PG Care Time/CCT Total # of Minutes Spent Total Time Spent with Patient: Total time spent is greater than 50% in coordination of care (as documented) at patient's floor/unit and/or counseling patient: Resident Activity Tracking Resident Involvement: Resident Care Provided Care Provided: Adult Hospital Medicine (1) Dysphagia Dysphagia type: unspecified Qualified Code(s): R13.10 - Dysphagia, unspecified (2) Lung cancer Laterality: unspecified laterality Lung location: unspecified part of lung Qualified Code(s): C34.90 - Malignant neoplasm of unspecified part of unspecified bronchus or lung
[2019-03-01] MEDS ORDERED: POTASSIUM CHLORIDE 10 MEQ TABCR PO ONE (17:15)
[2019-03-01] MEDS: FLUCONAZOLE 100 MG/50 ML BAG IV SCH (21:17)
[2019-03-01] MEDS: FAMOTIDINE 20 MG TAB PO SCH (21:43)
[2019-03-02] MEDS: LACTATED RINGER'S 1,000 ML IV SCH ×2 (05:11→19:21)
[2019-03-02] MEDS: LEVOTHYROXINE SODIUM 25 MCG TABLET PO SCH (05:12)
[2019-03-02 07:33] LABS: Hematocrit (blood only) 27.8 % (42-52); Hemoglobin 9.9 g/dL (14.0-18.0); Mean Corpuscular Hemoglobin 30.4 pg (25-34); Mean Corpuscular Hgb Conc 35.6 g/dL (32-36); Mean Corpuscular Volume 85.3 fL (80-100); RDW Coefficient of Variation 13.6 % (11.5-14.5); RDW Standard Deviation 42.6 fL (36.4-46.3); Red Blood Count 3.26 M/uL (4.7-6.1); White Blood Count 2.25 K/uL (4.8-10.8)
[2019-03-02 07:36] LABS: Platelet Count 20 K/uL (130-400)
[2019-03-02 07:37] LABS: ANC (manual) 2.17 K/uL (1.4-6.5); Dohle Bodies 2+; Eosinophils # (manual) 0.02 K/uL (0-0.5); Eosinophils % (manual) 0.9 %; Metamyelocytes # (manual) 0.02 K/uL (0-0); Metamyelocytes % (manual) 0.9 %; Neutrophils # (manual) 2.17 K/uL (1.4-6.5); Neutrophils % (manual) 96.5 %; Platelet Estimate SIGNIFIC DECREASED (Normal); Promyelocytes # (manual) 0.04 K/uL (0-0); Promyelocytes % (manual) 1.7 %; Toxic Granulation 3+
[2019-03-02 07:50] LABS: BUN Creatinine Ratio 12.5 (10-20); Calcium 7.5 mg/dl (8.5-10.1); Creatinine Clr Calc Pharmacy 153.3 ml/min; Est GFR (Non-African American) 120.8; Magnesium 1.7 mg/dl (1.8-2.4); Potassium 2.4 mmol/L (3.5-5.1)
[2019-03-02] MEDS ORDERED: POTASSIUM CHLORIDE / WTR 10 MEQ/100 ML PLCT IV STA (08:11)
[2019-03-02] MEDS ORDERED: POTASSIUM CHLORIDE 20 MEQ TABCR PO ONE (08:15)
[2019-03-02] MEDS ORDERED: MAGNESIUM SULFATE / D5W 1 GM/100 ML BAG IV ONE (08:15)
[2019-03-02] MEDS: POTASSIUM CHLORIDE / WTR 10 MEQ/100 ML PLCT IV SCH ×4 (08:30→11:55)
[2019-03-02] MEDS: FAMOTIDINE 20 MG TAB PO SCH ×2 (08:31→21:05)
[2019-03-02] MEDS: LOSARTAN POTASSIUM 50 MG TAB PO SCH (08:31)
[2019-03-02] MEDS: AMLODIPINE BESYLATE 5 MG TAB PO SCH (08:31)
[2019-03-02] MEDS: DEXAMETHASONE CONC 3.75 MG, NYSTATIN 30 ML, DiphenhydrAMINE Syrup 300 MG, ORA-SWEET SYR... PO PRN ×2 (08:32→17:06)
--- NOTE | 2019-03-02 08:54 | Family Medicine Progress Note ---
Date of Service March 02, 2019 Assessment & Plan (1) Neutropenia with fever: 73 yo M PMHx metastatic SCC of lung with improving dysphagia, now off of fluconazole and tolerating PO much better. Has developed oral herpetic lesions. Neutropenia - Resolving; WBC today is 2.25 from 0.82 yesterday - d/c'ed fluconazole today per heme/onc as pt's esophagitis likely due to radiation and chemo - 02/27 UA negative for infection, BCx x2 negative after 48 hours, CXR negative for infection Dysphagia - Improving, pt able to tolerate more liquid food since yesterday. Still hoarse and protecting voice by whispering but reports much less pain. - Likely radiation esophagitis. - Tylenol as needed for pain. - Liquid diet at this time, have added Boost and continue to replete electrolytes as necessary. Will escalate diet as he can tolerate. Thrombocytopenia -Pt's platelets 20 today from 30, discussed with heme/onc and expect this, however advised to transfuse if plt < 15, Hgb <8, or if bleeding. Oral Herpetic Lesions - causing patient pain, worsened from yesterday's "chapped" appearance - acyclovir 400mg q8 for 7 days Poor Nutritional Status/Malnutrition - Pt was able to eat more in the last 24 hours than he has in over a week due to his dysphagia, have been giving IV fluids and repleting electrolytes as necessary. - Want to ensure pt has proper PO intake prior to discharge. Escalating diet as he tolerates, and have added Boost. Physical Deconditioning - Pt has been in the hospital for an extended period of time and during that time has been quite ill, and therefore has an element of deconditioning. - Have placed PT/OT eval to help with returning him to his baseline activity in preparation for return home. Hypokalemia/Hypomagnesemia - K 2.3 this morning, have repleted 40 IV 40 PO (in 10mg tablets) tablets as patient reported that the liquid burned going down, will recheck in AM. - Magnesium 1.7 this morning, repleted with 1g Mg. Will recheck in AM. Chest congestion - resolved with use of flutter valve. - Continues to be afebrile. Metastatic Lung Cancer - Continued care per heme/onc, will need follow up outpatient. Dispo: Med/Surg DVT PPx: SCDs FEN: Liquid diet, fluids PO and IV LR 75 mL/hr, K and Mg repleted today Code Status: FULL CODE (2) Dysphagia: (3) Chest congestion: (4) Hypokalemia: (5) Lung cancer: (6) Poor nutrition: (7) Physical deconditioning: (8) Oral herpes: Supervising Physician Co-Signing Physician Notes Resident Physician Supervision Note: I independently interviewed and examined the patient and verified the bowden history and physical, reviewed labs and image studies, discussed the case with the resident Dr. Garcia and agree with the findings and care plan. Subjective No acute events overnight, reports that his difficulty talking and swallowing is much improved however he continues to speak with a whisper. Nursing reported he ate much more of his food yesterday but did not finish any meals. Potassium and Magnesium continue to be low daily. Has developed new lesions on mouth, yesterday thought it was just chapped lips but now mouth is much more sore per patient. Review of Systems Constitutional: no fever and no chills Ear, Nose, Mouth, Throat: + sore throat (improving from yesterday) and + pain with swallowing (improving from yesterday) sore lips, getting worse. Respiratory: no cough, no chest congestion, no dyspnea, no hemoptysis and no wheezing Cardiovascular: no chest pain, no palpitations and no edema Gastrointestinal: no vomiting, no constipation, no diarrhea/loose stools and no blood in stools Genitourinary: no dysuria and no hematuria Physical Exam Constitutional: well developed and + cachectic ENMT: Mouth: + lip abnormality (multiple herpetic lesions on upper and lower lips); no oropharynx abnormality, no oral mucosal abnormality and no tongue abnormality Respiratory: normal respiratory effort, lungs clear to auscultation Cardiovascular: RRR, no murmur, no edema Gastrointestinal (Abdomen): normal bowel sounds, soft, nontender, no hepatosplenomegaly Skin: no rashes, warm and dry oral lesions Psychiatric: A+Ox3, euthymic affect Results & Data Vital Signs (Past 12 Hours) Vital Signs Temp Pulse Resp BP Pulse Ox 03/02/19 06:59 37.0 C 71 18 138/68 91 03/02/19 03:49 36.7 C 80 17 149/76 H 92 03/01/19 23:04 36.9 C 81 20 144/74 H 92 PG Care Time/CCT Total # of Minutes Spent Total Time Spent with Patient: Total time spent is greater than 50% in coordination of care (as documented) at patient's floor/unit and/or counseling patient: Resident Activity Tracking Resident Involvement: Resident Care Provided Care Provided: Adult Hospital Medicine (1) Dysphagia Dysphagia type: unspecified Qualified Code(s): R13.10 - Dysphagia, unspecified (2) Lung cancer Laterality: unspecified laterality Lung location: unspecified part of lung Qualified Code(s): C34.90 - Malignant neoplasm of unspecified part of unspecified bronchus or lung
--- NOTE | 2019-03-02 09:18 | Progress Note ---
DATE: 03/02/2019 DIAGNOSES: 1. Dysphagia, radiation induced versus Zainab esophagitis. 2. Pancytopenia attributable to chemotherapy. 3. Hypokalemia/hypomagnesemia. 4. Extensive stage small cell lung cancer. SUBJECTIVE: The patient was seen and examined at bedside again, continues to make slow, but steady progress. I spoke to the resident caring for the patient and will activate PT and OT to increase his activity level. His dietary intake has improved somewhat and advised advancing his diet as tolerated. He now has 2 herpetic labial lesions, lower lip to be precise that seemed to be getting a bit worse. We will start on antiviral today as well. His potassium remains low. Magnesium was successfully repleted. Nursing reports no overnight difficulties and the patient has no complaints to pain today. WBCs are out of the neutropenic range at this point now. OBJECTIVE: GENERAL: A very pleasant 73-year-old gentleman, in no acute distress. VITAL SIGNS: Temperature 37, pulse 71, respiratory rate 18, blood pressure 138/68. SKIN: Without rash or lesion. HEENT: Oral mucosa without buccal lesions or ulcerations. Again, he has 2 herpetic lower lip lesions. NECK: Supple. Trachea is midline. HEART: Regular rate and rhythm. LUNGS: Clear to auscultation bilaterally. ABDOMEN: Soft, nontender, nondistended. EXTREMITIES: No clubbing, cyanosis or edema. NEUROLOGICAL: Grossly intact. LABORATORY DATA: WBC count 2250, hemoglobin 9.9, platelet count 20,000, absolute neutrophil count is 2170. Sodium 137, potassium 2.4, chloride 101, carbon dioxide 31, creatinine 0.39, BUN 5, magnesium 1.7. IMPRESSION: 1. Herpetic lower lip lesions. 2. Dysphagia with radiation versus Zainab esophagitis. 3. Pancytopenia attributable to chemotherapy. 4. Hypomagnesemia, hypokalemia. 5. Extensive small cell lung cancer. PLAN: Again discussed the patient's situation with the managing resident. The resident will order PT and OT and slowly advance the patient's diet. I have taken the liberty of adding acyclovir 400 mg p.o. t.i.d. for herpes lesions. He is no longer neutropenic; however, his platelets did drop a little bit, which I suspect is residual myelosuppression from chemo. I anticipate the patient being discharged prior to the weekend if he continues to progress as he has over the past couple of days. Would continue to work on his electrolytes, again magnesium needs to be replaced first and then his potassium should correct as well. He has no pain issues and overall seems to be progressing towards discharge at this point. I will continue to follow the patient regularly throughout his hospital stay.
[2019-03-02] MEDS: ACYCLOVIR 400 MG TAB PO SCH ×3 (10:46→21:05)
[2019-03-03] MEDS: LACTATED RINGER'S 1,000 ML IV SCH (05:50)
[2019-03-03] MEDS: LEVOTHYROXINE SODIUM 25 MCG TABLET PO SCH (05:50)
[2019-03-03 06:41] LABS: Hematocrit (blood only) 26.5 % (42-52); Hemoglobin 9.3 g/dL (14.0-18.0); Mean Corpuscular Volume 85.5 fL (80-100); RDW Coefficient of Variation 13.6 % (11.5-14.5); RDW Standard Deviation 42.5 fL (36.4-46.3); White Blood Count 3.44 K/uL (4.8-10.8)
[2019-03-03 06:55] LABS: ANC (manual) 3.26 K/uL (1.4-6.5); Mean Corpuscular Hgb Conc 35.1 g/dL (32-36); Metamyelocytes # (manual) 0.09 K/uL (0-0); Metamyelocytes % (manual) 2.6 %; Monocytes # (manual) 0.03 K/uL (0.11-0.59); Monocytes % (manual) 0.9 %; Myelocytes # (manual) 0.06 K/uL (0-0); Myelocytes % (manual) 1.7 %; Neutrophils # (manual) 3.26 K/uL (1.4-6.5); Neutrophils % (manual) 94.8 %; Platelet Count 22 K/uL (130-400); Platelet Estimate SIGNIFIC DECREASED (Normal); Toxic Granulation 3+
[2019-03-03 07:11] LABS: BUN Creatinine Ratio 14.1 (10-20); Calcium 7.4 mg/dl (8.5-10.1); Creatinine Clr Calc Pharmacy 153.8 ml/min; Est GFR (Non-African American) 120.8; Potassium 2.3 mmol/L (3.5-5.1)
[2019-03-03] MEDS ORDERED: POTASSIUM CHLORIDE 10 MEQ TABCR PO STA (07:22)
[2019-03-03] MEDS ORDERED: MAGNESIUM SULFATE / D5W 1 GM/100 ML BAG IV SCH (07:30)
[2019-03-03] MEDS: POTASSIUM CHLORIDE / WTR 10 MEQ/100 ML PLCT IV SCH ×4 (07:51→11:11)
[2019-03-03] MEDS: LOSARTAN POTASSIUM 50 MG TAB PO SCH (08:41)
[2019-03-03] MEDS: FAMOTIDINE 20 MG TAB PO SCH ×2 (08:42→20:44)
[2019-03-03] MEDS: ACYCLOVIR 400 MG TAB PO SCH ×3 (08:42→20:44)
[2019-03-03] MEDS: AMLODIPINE BESYLATE 5 MG TAB PO SCH (08:42)
--- NOTE | 2019-03-03 09:07 | Progress Note ---
DATE: 03/03/2019 MEDICAL ONCOLOGY PROGRESS NOTE DIAGNOSES: 1. Dysphagia, radiation versus candidal esophagitis. 2. Pancytopenia, attributable to chemotherapy. 3. Hypokalemia/hypomagnesemia. 4. Extensive stage small cell lung cancer. SUBJECTIVE: Juan was seen and examined at bedside today. Again, still does not phonate well, but admits his swallowing is improving. Staff is actively advancing his diet. His electrolytes have been somewhat labile requiring frequent doses of magnesium and potassium. I have started him on an antiviral for herpetic labialis. I believe Mr. Anne is definitely closer to discharge. Physical and occupational therapy are currently working with Juan moving to the goal of discharge. He offers no complaints of pain. He has not moved his bowels in the last 24 hours, however. OBJECTIVE: GENERAL: A very pleasant 73-year-old gentleman in no acute distress. VITAL SIGNS: Temperature 37, pulse 97, respiratory rate 18, blood pressure 150/76. SKIN: Without rash or lesion. HEENT: Oral mucosa without erythema or ulceration. NECK: Supple. Trachea midline. HEART: Regular rate and rhythm. LUNGS: Clear to auscultation bilaterally. ABDOMEN: Soft, nontender, nondistended. EXTREMITIES: No clubbing, cyanosis or edema. NEUROLOGIC: Grossly intact. LABORATORY DATA: WBC count 3440, hemoglobin 9.3, platelet count 22,000. Sodium 138, potassium 2.3, chloride 101, carbon dioxide 29, creatinine 0.39, BUN 5. IMPRESSION: 1. Herpes labialis. 2. Dysphagia, attributable to radiation versus Zainab. 3. Pancytopenia, attributable to chemotherapy. 4. Hypomagnesemia/hypokalemia. 5. Extensive small cell lung cancer. PLAN: Juan is making slow but steady progress, definitely swallowing a bit better with less discomfort. Started him on acyclovir yesterday for herpes labialis. Further supplementation of magnesium and potassium are necessary today. I believe it is attributable to his previous chemotherapy as well. Nonetheless, once he is up and around readily, I think he could probably be discharged from an oncologic perspective within a day or two. They are slowly working with him to improve his diet. I am not sure when he is going to be ready for chemotherapy despite being due for his dose next week. I can foresee waiting another week or two before he would resume a modified chemotherapeutic regimen moving forward. Agree with medical management otherwise. We will continue to follow Juan throughout his hospital stay.
--- NOTE | 2019-03-03 09:39 | Family Medicine Progress Note ---
Date of Service March 03, 2019 Assessment & Plan (1) Neutropenia with fever: 73 yo M PMHx metastatic SCC of lung with improving dysphagia, improving PO intake, still with profound hypokalemia but resolved neutropenia. Dysphagia - Improving, pt able to tolerate more soft foods yesterday per nursing and while the pt's throat continues to be sore it is improving daily. - Likely due to radiation esophagitis. Still getting nystatin in magic mouthwash. - Tylenol and Dilaudid as needed for pain. - Will continue to encourage good PO intake, and replete electrolytes as necessary. Thrombocytopenia -Pt's platelets 22 today from 20, will transfuse if plt < 15, Hgb <8, or if signs of bleeding. Labial Herpetic Lesions - minimal change from yesterday - Have advised chapstick/home Blistex use to help with chapped lips - acyclovir 400mg q8 for total of 7 days; started yesterday Poor Nutritional Status - Pt is eating much better over the last two days, however continues to struggle to eat certain foods. - Replete electrolytes as necessary, advance diet as tolerated. Hypokalemia/Hypomagnesemia - K 2.3 this morning, have repleted 40 IV 40 PO (in 10mg tablets) tablets as patient reported that the liquid burned going down, and have implemented a high potassium diet. Will recheck in AM. - Magnesium 1.7 yesterday, have repleted yesterday and this morning with 1g Mg. Will recheck in AM tomorrow Neutropenia - Resolved; WBC today is 3.44 from 2.25 yesterday - d/c'ed fluconazole yesterday per heme/onc as pt's esophagitis likely due to r adiation and chemo - 02/27 UA negative for infection, BCx x2 negative after 48 hours, CXR negative for infection Metastatic Lung Cancer - Continued care per heme/onc, will need follow up outpatient. HTN - Continue home Losartan and Amlodipine Hypothyroidism - Continue home Synthroid Physical Deconditioning - Pt has been in the hospital for an extended period of time and during that time has been quite ill, and therefore has an element of deconditioning. - PT/OT evaluated and okay with him going to home upon d/c, however will continue to see him during his time in the hospital for conditioning. Dispo: Med/Surg DVT PPx: SCDs FEN: K rich soft diet, fluids PO and IV LR 50 mL/hr, K and Mg repleted today Code Status: FULL CODE (2) Dysphagia: (3) Chest congestion: (4) Hypokalemia: (5) Lung cancer: (6) Poor nutrition: (7) Physical deconditioning: (8) Oral herpes: (9) Hypertension: (10) Hypothyroidism: Supervising Physician Co-Signing Physician Notes Resident Physician Supervision Note: I independently interviewed and examined the patient and verified the bowden history and physical, reviewed labs and image studies, discussed the case with the resident Dr. Garcia and agree with the findings and care plan. Subjective Reports even more improvement overnight regarding his dysphagia. Has been able to tolerate more soft foods, though his voice is still hoarse. Denies shortness of breath or chest congestion, no chest pain, no abdominal pain or changes in bowels or bladder. in room with patient. Review of Systems Constitutional: no fever, no chills and no malaise Ear, Nose, Mouth, Throat: + mouth lesions (on lower lip two herpetic lesions, improved from yesterday but still causing discomfort. ) Respiratory: no cough and no dyspnea Cardiovascular: no chest pain, no palpitations and no edema Gastrointestinal: no abdominal pain, no constipation and no diarrhea/loose stools Physical Exam Constitutional: well developed and + cachectic ENMT: Mouth: + lip abnormality (multiple herpetic lesions on lower lip); no oropharynx abnormality, no oral mucosal abnormality and no tongue abnormality Respiratory: normal respiratory effort, lungs clear to auscultation Cardiovascular: RRR, no murmur, no edema Gastrointestinal (Abdomen): normal bowel sounds, soft, nontender, no hepatosplenomegaly Skin: no rashes, warm and dry oral lesions Psychiatric: A+Ox3, euthymic affect Results & Data Vital Signs (Past 12 Hours) Vital Signs Temp Pulse Resp BP BP Pulse Ox 03/03/19 08:08 37.0 C 97 H 18 150/76 H 90 03/03/19 04:04 37.2 C 97 H 18 134/77 92 03/02/19 23:24 37.1 C 93 H 18 152/77 H 92 PG Care Time/CCT Total # of Minutes Spent Total Time Spent with Patient: Total time spent is greater than 50% in coordination of care (as documented) at patient's floor/unit and/or counseling patient: Resident Activity Tracking Resident Involvement: Resident Care Provided Care Provided: Adult Hospital Medicine (1) Dysphagia Dysphagia type: unspecified Qualified Code(s): R13.10 - Dysphagia, unspecified (2) Hypothyroidism Hypothyroidism type: unspecified Qualified Code(s): E03.9 - Hypothyroidism, unspecified (3) Lung cancer Laterality: unspecified laterality Lung location: unspecified part of lung Qualified Code(s): C34.90 - Malignant neoplasm of unspecified part of unspecified bronchus or lung (4) Hypertension Hypertension type: essential hypertension Qualified Code(s): I10 - Essential (primary) hypertension
[2019-03-04] MEDS: DEXAMETHASONE CONC 3.75 MG, NYSTATIN 30 ML, DiphenhydrAMINE Syrup 300 MG, ORA-SWEET SYR... PO PRN ×3 (01:39→20:04)
[2019-03-04] MEDS: LEVOTHYROXINE SODIUM 25 MCG TABLET PO SCH (05:56)
[2019-03-04 06:21] LABS: Hematocrit (blood only) 27.9 % (42-52); Hemoglobin 9.9 g/dL (14.0-18.0); Mean Corpuscular Hemoglobin 30.6 pg (25-34); Mean Corpuscular Hgb Conc 35.5 g/dL (32-36); Mean Corpuscular Volume 86.1 fL (80-100); Mean Platelet Volume 12.1 fL (7.4-10.4); Platelet Count 38 K/uL (130-400); RDW Coefficient of Variation 13.8 % (11.5-14.5); RDW Standard Deviation 43.4 fL (36.4-46.3); Red Blood Count 3.24 M/uL (4.7-6.1); White Blood Count 3.84 K/uL (4.8-10.8)
[2019-03-04 06:42] LABS: ALC (manual) 0.17 K/uL (1.2-3.4); Dohle Bodies 1+; Giant Platelets 1+; Lymphocytes # (manual) 0.17 K/uL (1.2-3.4); Lymphocytes % (manual) 4.4 %; Metamyelocytes # (manual) 0.03 K/uL (0-0); Metamyelocytes % (manual) 0.9 %; Monocytes # (manual) 0.03 K/uL (0.11-0.59); Monocytes % (manual) 0.9 %; Myelocytes # (manual) 0.17 K/uL (0-0); Myelocytes % (manual) 4.4 %; Neutrophils % (manual) 88.5 %; Promyelocytes # (manual) 0.03 K/uL (0-0); Promyelocytes % (manual) 0.9 %; Toxic Granulation 1+
[2019-03-04 06:56] LABS: BUN Creatinine Ratio 19.7 (10-20); Calcium 7.7 mg/dl (8.5-10.1); Creatinine Clr Calc Pharmacy 165.1 ml/min; Est GFR (African American) 146.3; Est GFR (Non-African American) 126.3; Magnesium 1.6 mg/dl (1.8-2.4); Potassium 2.5 mmol/L (3.5-5.1)
[2019-03-04] MEDS ORDERED: POTASSIUM CHLORIDE 10 MEQ TABCR PO STA (07:30)
[2019-03-04] MEDS: MAGNESIUM SULFATE / D5W 1 GM/100 ML BAG IV SCH ×4 (07:59→09:39)
[2019-03-04] MEDS: MAGNESIUM OXIDE 400 MG TAB PO SCH (08:45)
[2019-03-04] MEDS: LOSARTAN POTASSIUM 50 MG TAB PO SCH (08:45)
[2019-03-04] MEDS: ACYCLOVIR 400 MG TAB PO SCH ×3 (08:45→20:04)
[2019-03-04] MEDS: AMLODIPINE BESYLATE 5 MG TAB PO SCH (08:45)
[2019-03-04] MEDS: FAMOTIDINE 20 MG TAB PO SCH ×2 (08:46→20:04)
--- NOTE | 2019-03-04 09:34 | Family Medicine Progress Note ---
Date of Service March 04, 2019 Assessment & Plan (1) Neutropenia with fever: 73 yo M with history of metastatic lung cancer originally admitted for neutropenic fever now improving but with poor nutritional status and electrolyte balance. Dysphagia - Improving, pt able to tolerate more soft foods however still eats less than half of his total food per nursing. While the pt's throat continues to be sore per the pt the pain is improving daily. - Likely due to radiation esophagitis. Still getting nystatin in magic mouthwash. - Tylenol and Dilaudid as needed for pain. - Will continue to encourage good PO intake, and replete electrolytes as necessary. - Have ordered phosphorus level and will replete as necessary, and have repleted with zinc given his ongoing malnutrition and oral sores. - Consider barium swallow if no further improvement over the wkend. Globus Sensation - pt reports feels like food gets stuck and that something is in his throat when he swallows. This is possibly due to the esophagitis but will consider evaluati ng for stricture and getting GI involved if no improvement over the weekend. Thrombocytopenia -Pt's platelets 38 today, will transfuse if plt < 15, Hgb <8, or if signs of bl eeding. Labial Herpetic Lesions - Improved compared to yesterday and pt with less oral pain - Have advised chapstick/home Blistex use to help with chapped lips - Acyclovir 400mg q8 for total of 7 days; started 03/02/19 - Zinc repletion ordered. Poor Nutritional Status/Severe protein/energy malnutrion - Pt is eating much better over the last two days, however continues to struggle to eat certain foods reporting that they "taste funny" and still does not complete his meals. - Have encouraged pt and his to continue eating as much as he can so that his nutritional status continues to improve. - Replete electrolytes as necessary, advance diet as tolerated. Hypokalemia/Hypomagnesemia - K 2.5 this morning, have repleted 40 IV 40 PO (in 10mg tablets) and will recheck in AM. - Magnesium 1.6 today, have repleted 1g IV x2 bags and magnesium oxide 400mg PO daily. Will recheck in AM. Neutropenia - Resolved; WBC today is 3.84, no longer on neutropenic precautions. - 02/27 UA negative for infection, BCx x2 negative after 48 hours, CXR negative for infection - Nystatin in magic mouthwash given immunocompromised state. Metastatic Lung Cancer - Continued care per heme/onc, will need follow up outpatient. - Dr. James following. Physical Deconditioning - PT following daily. HTN - Continue home Losartan and Amlodipine. Hypothyroidism - Continue home Synthroid. Dispo: Med/Surg DVT PPx: SCDs FEN: K rich soft diet, fluids PO, K/Mg repleted today both IV and PO, Zinc given PO Code Status: FULL CODE (2) Dysphagia: (3) Chest congestion: (4) Hypokalemia: (5) Lung cancer: (6) Poor nutrition: (7) Physical deconditioning: (8) Oral herpes: (9) Globus sensation: Supervising Physician Co-Signing Physician Notes Resident Physician Supervision Note: I independently interviewed and examined the patient and verified the bowden history and physical, reviewed labs and image studies, discussed the case with the resident Dr. Garcia and agree with the findings and care plan. Subjective Pt without acute events overnight. Reports still some trouble swallowing but able to tolerate some of his soft diet. Per nursing was up at 5AM this morning at the sink to wash himself. Denies fevers or chills, shortness of breath, chest pain, abdominal pain, diarrhea. Last BM was yesterday. Reports that his throat feels scratchy and sometimes food and pills feel like they are getting stuck. Review of Systems Constitutional: no fever, no chills and no malaise Ear, Nose, Mouth, Throat: throat continues to be sore but reports some improvement from yesterday. Reports foods still "taste funny". Lesions on mouth hurt less today. Respiratory: no dyspnea and no wheezing Some pain with coughing but able for the most part to "get up phlegm". No trouble breathing. Cardiovascular: no chest pain, no palpitations and no edema Gastrointestinal: no abdominal pain, no constipation and no diarrhea/loose stools Physical Exam Constitutional: WD/WN, vitals as above ENMT: Mouth: + lip abnormality (multiple healing herpetic lesions on lower lip. ) Respiratory: normal respiratory effort, lungs clear to auscultation Cardiovascular: RRR, no murmur, no edema Gastrointestinal (Abdomen): normal bowel sounds, soft, nontender, no hepat osplenomegaly Skin: no rashes, warm and dry Psychiatric: A+Ox3, euthymic affect Results & Data Vital Signs (Past 12 Hours) Vital Signs Temp Pulse Resp BP BP Pulse Ox 03/04/19 07:45 36.9 C 92 H 16 152/75 H 94 03/04/19 04:20 36.4 C L 94 H 16 148/77 H 92 03/03/19 23:29 36.9 C 96 H 16 149/80 H 93 PG Care Time/CCT Total # of Minutes Spent Total Time Spent with Patient: Total time spent is greater than 50% in coordination of care (as documented) at patient's floor/unit and/or counseling patient: Resident Activity Tracking Resident Involvement: Resident Care Provided Care Provided: Adult Hospital Medicine (1) Dysphagia Dysphagia type: unspecified Qualified Code(s): R13.10 - Dysphagia, unspecified (2) Lung cancer Laterality: unspecified laterality Lung location: unspecified part of lung Qualified Code(s): C34.90 - Malignant neoplasm of unspecified part of unspecified bronchus or lung
--- NOTE | 2019-03-04 09:39 | Progress Note ---
DATE: 03/04/2019 DIAGNOSES: 1. Herpes labialis. 2. Dysphagia, radiation versus Candidal esophagitis. 3. Pancytopenia attributable to chemotherapy. 4. Electrolyte dysfunction, hypokalemia/hypomagnesemia. 5. Extensive stage small cell lung cancer. SUBJECTIVE: The patient was seen and examined at bedside again. The patient is moving about bit more. He reports bowel movement in last 24 hours. He is slowly increasing his diet. The most pressing clinical issue is correction of his electrolytes, which has been a struggle over the past couple of days, particularly with magnesium and potassium. He has had no fever or chills overnight. Physical and Occupational Therapy are currently working with the patient to move towards discharge. OBJECTIVE: GENERAL: A very pleasant 73-year-old gentleman, in no acute distress. VITAL SIGNS: Temperature 36.9, pulse 92, respiratory rate 16, blood pressure 152/75. SKIN: Warm, dry, noncyanotic without petechia, rash or ecchymosis. HEENT: No buccal lesions or ulcerations. Again, he has got encrusted herpes ulcerations on the lower lip that definitely look like improving. NECK: Supple. Trachea midline. HEART: Regular rate and rhythm. LUNGS: Clear to auscultation bilaterally. ABDOMEN: Soft, nontender, nondistended. EXTREMITIES: No clubbing, cyanosis or edema. NEUROLOGIC: Grossly intact. LABORATORY DATA: WBC count 3840, hemoglobin 9.9, platelet count 38,000, absolute neutrophil count 3400. Potassium 2.5, magnesium 1.6. IMPRESSION: 1. Electrolyte dysfunction, hypomagnesemia/hypokalemia. 2. Herpes labialis. 3. Dysphagia attributable to radiation versus fungus versus Zainab. 4. Pancytopenia attributable to chemotherapy. 5. Extensive stage small cell lung cancer. PLAN: As previously stated, the patient is making slow but steady progress. He would like to have a little better control on his electrolytes before he is discharged. He has been on acyclovir couple of days now for herpes labialis, which I think are improving. His p.o. intake is slowly increasing over time and as long as he is ambulatory without lightheadedness, I believe he is well on his way to be discharged home. Again, I probably will not vallecillo back in treating him until I am convinced he is medically stable. I have also asked the Medical Service to put him on oral magnesium as well as his IV supplementation. Magnesium needs to be corrected before potassium, we will correct. We will continue to see the patient periodically throughout his stay. Thank you again for allowing me to participate in his care.
[2019-03-04] MEDS: POTASSIUM CHLORIDE / WTR 10 MEQ/100 ML PLCT IV SCH ×4 (12:12→18:34)
[2019-03-04] MEDS: ZINC SULFATE 220 MG CAPSULE PO SCH (19:56)
[2019-03-05] MEDS: LEVOTHYROXINE SODIUM 25 MCG TABLET PO SCH (06:33)
[2019-03-05] MEDS: DEXAMETHASONE CONC 3.75 MG, NYSTATIN 30 ML, DiphenhydrAMINE Syrup 300 MG, ORA-SWEET SYR... PO PRN ×3 (06:33→15:59)
[2019-03-05 07:43] LABS: BUN Creatinine Ratio 18.7 (10-20); Calcium 7.3 mg/dl (8.5-10.1); Creatinine Clr Calc Pharmacy 164.6 ml/min; Est GFR (African American) 146.3; Est GFR (Non-African American) 126.3; Magnesium 1.8 mg/dl (1.8-2.4); Potassium 2.8 mmol/L (3.5-5.1)
[2019-03-05 08:00] LABS: Hematocrit (blood only) 26.9 % (42-52); Hemoglobin 9.3 g/dL (14.0-18.0); Mean Corpuscular Hemoglobin 29.9 pg (25-34); Mean Corpuscular Hgb Conc 34.6 g/dL (32-36); Mean Corpuscular Volume 86.5 fL (80-100); Mean Platelet Volume 12.2 fL (7.4-10.4); Platelet Count 72 K/uL (130-400); RDW Coefficient of Variation 14.1 % (11.5-14.5); RDW Standard Deviation 44.3 fL (36.4-46.3); Red Blood Count 3.11 M/uL (4.7-6.1); White Blood Count 4.82 K/uL (4.8-10.8)
[2019-03-05] MEDS: AMLODIPINE BESYLATE 5 MG TAB PO SCH (08:51)
[2019-03-05] MEDS: FAMOTIDINE 20 MG TAB PO SCH ×2 (08:51→20:38)
[2019-03-05] MEDS: ACYCLOVIR 400 MG TAB PO SCH ×3 (08:51→20:38)
[2019-03-05] MEDS: LOSARTAN POTASSIUM 50 MG TAB PO SCH (08:52)
[2019-03-05] MEDS: MAGNESIUM OXIDE 400 MG TAB PO SCH (08:52)
[2019-03-05] MEDS: ZINC SULFATE 220 MG CAPSULE PO SCH (08:52)
--- NOTE | 2019-03-05 10:58 | Family Medicine Progress Note ---
Date of Service March 05, 2019 Assessment & Plan (1) Neutropenia with fever: 73 yo M with history of metastatic lung cancer originally admitted for neutropenic fever now improving but with poor nutritional status and electrolyte balance. Dysphagia radiation esophagitis vs. chemotherapy induced mucositis, less likely persistent keke esophagitis - Improving, pt able to tolerate more soft foods however still eats less than half of his total food per nursing. While the pt's throat continues to be sore. - Likely due to radiation esophagitis. Still getting Nystatin magic mouthwash. - Treated with Diflucan for 1 weeks - Tylenol and Dilaudid as needed for pain. - Will continue to encourage good PO intake, and replete electrolytes as necessary. - Considering workup of dysphagia as an outpatient, with follow up planned for Thursday with oncology. Globus Sensation - pt reports feels like food gets stuck and that something is in his throat when he swallows. This is possibly due to the esophagitis but will consider evaluating for stricture and getting GI involved if no improvement over the weekend, and patient is not discharged. - consider outpatient workup Thrombocytopenia resolved - Pt's platelets 72 today, improved from 38 yesterday. Labial Herpetic Lesions - Improved, advised Blistex - Acyclovir 400mg q8 for total of 7 days; started 03/02/19 - Zinc repletion ordered, due to concern for deficiency as cause of lesion. Poor Nutritional Status - Pt is eating much better over the prior week - Have encouraged pt and his to continue eating as much as he can so that his nutritional status continues to improve. - Replete electrolytes as necessary, advance diet as tolerated. - Estimated caloric need 1650 -1925, w/ BMI 18.1 - wt. 23 - 60 kg. today 03/05 - 60.1 kg Hypokalemia/Hypomagnesemia - K 2.8 this morning, have repleted with 40 KCL PO and will recheck BMP at 6PM. - EKG w/ QTp @ 510 - will consider further PO repletion with 40 KCL dependent on 6PM BMP. - Magnesium nl at 1.8 today. - Will follow BMP in AM. Neutropenia - Resolved; WBC today is 4.8, no longer on neutropenic precautions. - 02/27 UA negative for infection, blood cultures x2 negative after 48 hours, CXR negative for infection - Nystatin magic mouthwash given immunocompromised state. Metastatic Lung Cancer - Continued care per heme/onc, will need follow up outpatient. - Dr. James following, informed patient if they follow up outpatient he can recheck electrolytes in his clinic on Thursday and replete any abnormality if necessary. Physical Deconditioning - PT following daily. HTN - Continue home Losartan and Amlodipine. Hypothyroidism - Continue home Synthroid. Dispo: Med/Surg DVT PPx: SCDs FEN: K rich soft diet, fluids PO, K repleted today PO Code Status: FULL CODE (2) Dysphagia: (3) Chest congestion: - CXR negative for acute infectious process. - Flutter valve and incentive spirometer to help clear secretions and for atalectasis. (4) Hypokalemia: (5) Lung cancer: - Continued care per heme/onc, will need follow up outpatient. Dispo: Med/Surg DVT PPx: SCDs FEN: Liquid diet, fluids PO and IV LR 75 mL/hr Code Status: FULL CODE (6) Poor nutrition: (7) Physical deconditioning: (8) Oral herpes: (9) Globus sensation: Supervising Physician Co-Signing Physician Notes I personally examined the patient and verified all bowden points of history and exam, discussed case, and agree with decision making with Dr Orozco. Seems to be feeling a decent amount better, tolerating oral well, but does have a globus sensation/sensation of something sticking in his throat. Discussed the possibility of working this up further as an inpatient versus as an outpatient, he will discuss further with his . Later in discussions with oncology, patient and were looking towards probably home tomorrow with ongoing work-up as an outpatient. Vitals noted, in general he is awake and alert pleasant no distress, looks much brighter than when I last saw him last week. Breathing unlabored no accessory muscle use good effort. Skin shows no rashes no pallor or icterus. Dysphasia/failure to thriverelated to esophagitis, most likely radiation. His globus sensation could be worked up further with an EGD or at least a barium swallow, but as discussed this can be done inpatient versus outpatient given his overall stability, and his ability to at least take in enough orally to do okay as an outpatient. He and his are going to discuss their plans, it sounds like in discussion with oncology they are likely to have the rest of the work-up as an outpatient, which is reasonable. Otherwise as above. Subjective States he has stable pain in throat. Still having food getting stuck in throat, on soft diet. coming at 3:30 or 4 PM. Review of Systems Constitutional: no fever and no chills Respiratory: + cough no blood in his sputum Cardiovascular: no chest pain and no palpitations Gastrointestinal: no abdominal pain, no nausea and no vomiting Physical Exam Respiratory: coarse with good air movement Cardiovascular: RRR, no murmur, no edema Results & Data Vital Signs (Past 12 Hours) Vital Signs Temp Pulse Resp BP BP Pulse Ox 03/05/19 07:02 36.6 C 93 H 20 153/79 H 93 03/05/19 04:20 36.8 C 91 H 18 138/77 91 03/04/19 23:28 36.5 C 99 H 16 144/79 H 96 PG Care Time/CCT Total # of Minutes Spent Total Time Spent with Patient: Total time spent is greater than 50% in coordination of care (as documented) at patient's floor/unit and/or counseling patient: (1) Dysphagia Dysphagia type: unspecified Qualified Code(s): R13.10 - Dysphagia, unspecified (2) Lung cancer Laterality: unspecified laterality Lung location: unspecified part of lung Qualified Code(s): C34.90 - Malignant neoplasm of unspecified part of unspecified bronchus or lung
[2019-03-05] MEDS ORDERED: POTASSIUM CHLORIDE 20 MEQ TABCR PO STA (15:33)
--- NOTE | 2019-03-05 16:21 | Progress Note ---
DATE: 03/05/2019 DIAGNOSES: 1. Herpes labialis. 2. Dysphagia radiation versus candidal esophagitis. 3. Pancytopenia attributable to chemotherapy. 4. Electrolyte dysfunction, hypokalemia/hypomagnesemia. 5. Extensive stage small cell lung cancer. SUBJECTIVE: Luis was seen and examined at bedside this afternoon. His and son were in to visit. Engaged in lengthy discussion regarding plans moving forward for therapeutics. Luis wants to continue his fight and I recommend that he first and foremost get better and then secondly proceed cautiously with a marked dose reduction. He is still having some difficulties with swallowing. He is able to get down soft items without too much trouble, but I could foresee any tablets going forward may be difficult. Therefore, I have to be careful with what he is prescribed upon discharge. He is ambulating with minimal assistance. He is moving his bowels. No reported fever or chills in the last [address] I spoke to Dr[address] Mosher regarding a Luis's progress and may move to discharge him tomorrow. He still has fluctuant electrolytes which I would be more than happy to follow when he comes to see me midweek. OBJECTIVE: GENERAL: Very pleasant 73-year-old gentleman in no acute distress. VITAL SIGNS: Temperature 36.5, pulse 108, respiratory rate 18, blood pressure 142/78. SKIN: Warm, dry, noncyanotic without rash or lesion. HEENT: Oral mucosa without erythema or ulceration. NECK: Supple. Trachea midline. HEART: Regular rate and rhythm. LUNGS: Clear to auscultation bilaterally. ABDOMEN: Soft, nontender, nondistended. EXTREMITIES: No clubbing, cyanosis or edema. NEUROLOGIC: Grossly intact. LABORATORY DATA: WBC count 4820, hemoglobin 9.3, platelet count 72,000. Sodium 139, potassium 2.8, chloride 104, carbon dioxide 28, creatinine 0.35, BUN 7. Magnesium 1.8. IMPRESSION: 1. Electrolyte dysfunction hypomagnesemia/hypokalemia. 2. Herpes labialis. 3. Dysphagia attributable to radiation versus candidal. 4. Pancytopenia attributable to chemotherapy. 5. Extensive stage small cell lung cancer. PLAN: Again, I engaged in a lengthy discussion with Juan and family members at bedside today. Luis wishes to continue his fight and will plan to convene with him on Thursday next week. If he is still not well enough, I may consider delaying another week before restarting therapy, which will definitely be dose reduced. Again, tried to provide reassurance that I would do my best to minimize side effects and hopefully prevent further hospitalization moving forward. If his electrolytes are still off kilter, we will replace as necessary during his visit on Thursday. Hopefully, I was able to provide enough assurance for both Luis and his family members moving forward. If Luis continues to improve, possibly he could be discharged tomorrow if the medical service agrees.
[2019-03-05] MEDS: POTASSIUM CHLORIDE / WTR 10 MEQ/100 ML PLCT IV SCH ×2 (18:40→19:40)
[2019-03-06 06:00] LABS: Nucleated RBC # (auto) 0.02 K/uL (0-0); Nucleated RBC % (auto) 0.3 %
[2019-03-06 06:03] LABS: Hematocrit (blood only) 26.9 % (42-52); Hemoglobin 9.4 g/dL (14.0-18.0); Mean Corpuscular Hemoglobin 30.1 pg (25-34); Mean Corpuscular Hgb Conc 34.9 g/dL (32-36); Mean Corpuscular Volume 86.2 fL (80-100); Mean Platelet Volume 11.4 fL (7.4-10.4); Platelet Count 127 K/uL (130-400); RDW Coefficient of Variation 14.1 % (11.5-14.5); RDW Standard Deviation 44.4 fL (36.4-46.3); Red Blood Count 3.12 M/uL (4.7-6.1); White Blood Count 6.35 K/uL (4.8-10.8)
[2019-03-06] MEDS: LEVOTHYROXINE SODIUM 25 MCG TABLET PO SCH (06:21)
[2019-03-06 06:46] LABS: BUN Creatinine Ratio 15.2 (10-20); Calcium 7.3 mg/dl (8.5-10.1); Creatinine Clr Calc Pharmacy 174.5 ml/min; Est GFR (African American) 149.9; Est GFR (Non-African American) 129.3; Magnesium 1.8 mg/dl (1.8-2.4); Potassium 3.1 mmol/L (3.5-5.1)
[2019-03-06] MEDS: FAMOTIDINE 20 MG TAB PO SCH (08:31)
[2019-03-06] MEDS: MAGNESIUM OXIDE 400 MG TAB PO SCH (08:31)
[2019-03-06] MEDS: ZINC SULFATE 220 MG CAPSULE PO SCH (08:31)
[2019-03-06] MEDS: ACYCLOVIR 400 MG TAB PO SCH (08:31)
[2019-03-06] MEDS: LOSARTAN POTASSIUM 50 MG TAB PO SCH (08:31)
[2019-03-06] MEDS: AMLODIPINE BESYLATE 5 MG TAB PO SCH (08:31)
[2019-03-06 12:37] VITALS: TEMP 98.2; O2SAT 95
[2019-03-06 13:11] VITALS: BP 149/74; PULSE 81
--- NOTE | 2019-03-06 18:31 | Discharge Summary ---
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 Patient was initially seen in January 2019 with complaints of hoarseness and unintentional weight loss as well as dyspnea on exertion. He had a CT of the chest performed which showed a subcarinal/right lower lobe mass with additional satellite nodules and hypodense masses of the liver concerning for metastatic disease. On January 05, 2019 he had an FNA of the left lobe of the liver which revealed metastatic small cell carcinoma. On January 25 he had an MRI of the brain which revealed at least 10 enhancing cerebral and cerebellar masses with surrounding edema suggestive of metastatic disease. The patient completed palliative radiation therapy to the brain and the chest on February 11, 2019, 3000cGy to each area. Patient completed first cycle of carboplatin/etoposide/atezolizumab approximately 7 days ago. He is due for his next treatment in early March. Patient reports that since completion of his chemotherapy he has had a sore throat, difficulty swallowing secondary to pain, as well as dysphasia to both food and liquids. The symptoms have been progressive over the last 7 days. Patient also notes blisters on his lips that occurred 3 days ago which he believed to be cold sores as well as a rash on the soles of his feet. He also complains of substernal chest burning and loss of appetite. Patient has been unable to tolerate p.o. for the last few days. He was seen in the ER yesterday with similar complaints. He was administered IV fluids and discharged home with oncology follow-up. Patient denies fever but complains of frequent chills. He denies headache, visual changes, lesions in the mouth, abdominal pain, nausea, vomiting, diarrhea, constipation, dysuria. No additional complaints at this time. ER course: Normal saline fluid Admission Exam Per Admitting Provider Physical Exam Physical Exam: General: patient ill in appearance, resting comfortably, NAD, AA&O x 4, voice is soft and hoarse Skin: warm, dry, intact, crusted lesions noted on lower lip, no obvious vesicles, soles of feet with blanchable macular kolton colored reticular rash, nontender, no nodules/purpura HEENT: NC/AT, PERRL, EOMI, anicteric sclera, conjunctiva without injection, external ear normal to inspection and nontender, nares patent, dry mucus membranes, dentition intact, no oropharyngeal lesions, neck supple, trachea midline, no LAD, no thyromegaly, no JVD Heart: +S1/S2, regular, no m/r/g Lungs: equal air entry bilaterally, no rales/rhonchi/wheezes Abd: +BS, soft, NT/ND, no masses/organomegaly/ascites Ext: warm, 2+ pulses in UE/LE bilaterally, no clubbing/cyanosis or edema Neuro: nonfocal, patient AA&O x 4, speech intact, no facial droop, moving all extremities on command with equal strength 5/5 Principal Diagnosis Neutropenic fever Extensive stage small cell lung cancer Dysphagia Globus sensation Thrombocytopenia Labial herpetic lesions Poor nutritional status Hypokalemia Hypertension Physical deconditioning Hypothyroidism Discharge Exam Constitutional + thin and comfortable; no acute distress Eyes PERRL, conjunctivae normal, anicteric sclerae Respiratory normal respiratory effort, lungs clear to auscultation Cardiovascular RRR, no murmur, no edema Gastrointestinal (Abdomen) normal bowel sounds, soft, nontender, no hepatosplenomegaly Neurologic moves all extremities and awake Speech / Cognition: + abnormal speech (soft) Psychiatric A+Ox3, euthymic affect Discharge Data Allergies Allergy/AdvReac Type Severity Reaction Status Date / Time lisinopril AdvReac Verified 02/25/19 12:32 Consultations 02/25/19 12:22 ED Decision to Admit Stat 02/25/19 15:05 Consult Gastroenterology Routine Consult Oncology Routine 03/06/19 11:21 Consult [facility] [place] traveling nurse Routine Hospital Course (1) Neutropenia with fever: 73-year-old male with metastatic lung cancer originally admitted for neutropenic fever now improving but with poor nutritional status and electrolyte balance. Dysphagia and odynophagia due to radiation esophagitis vs. chemotherapy induced mucositis, less likely persistent keke esophagitis - Started 4 days after most recent radiation treatment and improved over his hospital coarse. Pt. able to tolerate more soft foods however still eats less than half of his total food per nursing. While the pt's throat continues to be sore. - Likely due to radiation esophagitis. Still getting Nystatin magic mouthwash. - Treated with Diflucan for 1 weeks - Tylenol and Dilaudid were given while hospitalized as needed for pain. - Encouraged PO intake, and repleted electrolytes as necessary. - Considering workup of dysphagia as an outpatient, with follow up planned for Thursday with oncology. Globus Sensation - pt reports feels like food gets stuck and that something is in his throat when he swallows. This is possibly due to the esophagitis but will consider evaluating for stricture and getting GI involved if no improvement over the weekend, and patient is not discharged. - consider outpatient workup, [facility] [place] navigator consult was placed for coordination of GI follow-up if the sensation does not resolve, or worsens Pancytopenia resolved chemotherapy induced - Neupogen 480 mcg SC daily was given. - Initially Vancomycin and Zosyn were given. - Urine cultures, blood cultures, and CXR negative for infective process. Thrombocytopenia resolved - Pt's platelets 127 on discharge Labial Herpetic Lesions - Improved, advised Blistex - Acyclovir 400mg q8 for total of 7 days; started 03/02/19 - Zinc repletion given, due to concern for deficiency as cause of lesion. Poor Nutritional Status - Pt is eating much better over the prior week - Have encouraged pt and his to continue eating as much as he can so that his nutritional status continues to improve. - Replete electrolytes as necessary, advance diet as tolerated. - Estimated caloric need 1650 -1925, w/ BMI 18.1 - wt. /23 - 60 kg. 03/05 - 60.1 kg Hypokalemia/Hypomagnesemia - K 3.1 on discharge, have repleted with IV and oral K throughout hospital coarse - EKG w/ QTp @ 510 (03/05) - Magnesium nl at 1.8 - Will have labs drawn on Thursday and able to have them repleted on Thursday with Dr. James Neutropenia - Resolved; WBC today is 4.8, no longer on neutropenic precautions. - 02/27 UA negative for infection, blood cultures x2 negative after 48 hours, CXR negative for infection - Nystatin magic mouthwash given immunocompromised state. Metastatic Lung Cancer - Continued care per heme/onc, will need follow up outpatient. - Dr. James following, informed patient if they follow up outpatient he can recheck electrolytes in his clinic on Thursday and replete any abnormality if necessary. If electrolytes are normal will start chemotherapy. Physical Deconditioning - PT followed over hospital coarse. HTN - Continued home Losartan and Amlodipine. - systolic BP ranged from 110's to 150's - Continue outpatient management w/ PCP Hypothyroidism - Continue home Synthroid. Total Time Total Time Spent Total Time Spent (In Minutes): <30 Discharge Plan Discharge Items Patient Disposition: Home - Self-Care Reason For Visit: ODYNOPHAGIA, DYSPHAGIA Discharge Diagnosis: Odynophagia, Dysphagia Discharge Goals: Improve function and Improve nutritional status Activity: Per 'Additional Instructions' section Non-emergency contact: Primary Care Provider Call non-emergency contact if: your symptoms worsen Follow-up/Referrals: Mariah Lockett MD [Primary Care Provider] - 03/11/19 2:00 pm (Please, follow up with Dr. Mariah Lockett on ThursdayMarch 11 at 2:00 pm. *If you need to change this appointment, call the office at [phone].) Diet: See below Addtl Provider Instructions: Diet: soft foods such as fruits rich in potassium. As we discussed you should aim for 1800 calories each day. You should monitor what you eat and keep a diary of what is eaten throughout the day. Ways to ensure that you are able to get enough calories include drinking 3-4 boost plus shakes that contain 300-350 calories, or similar Atkins shakes that have sligh tly fewer calories. Try to avoid foods like steak, or bread. As we discussed if you are eating bread ensure that you are chewing the meal thoroughly. Baby food is a good thing to snack on, but will not have as many calories as other options. Try to eat as many foods from the list I provided such as banana, beans, broccoli, apricots, peas, clams, potato, and tomatoes. If you have the feeling that food is getting stuck for greater than 4-6 hours come in to be evaluated. As we discussed you can see your primary care doctor Dr. Lockett, Gastroenterology, or Dr. James. We discussed the cause of the trouble with swallowing was likely due to radiation, and may improve over time. If there is worsening, or no improvement we may have Dr. Almanza with Gastroenterology evaluate the esophagus with a scope, or X-ray of the esophagus with fluid that will allow them to see the borders of the esophagus. The other thought with the trouble swallowing is that it could be due to yeast infection of the esophagus. If this was the cause then we would expect things not to improve and to worsen. If this were the case we would need to see Dr. Almanza with Gastroenterology to further evaluate this with a scope potentially. Follow up with Dr. James on Thursday with the plan that if the labs on Thursday are showing an electrolyte disturbance that will be addressed on Thursday and if the labs look good you may have chemotherapy on Thursday, , and Thursday. Prescriptions: Continued metronidazole 0.75 % lotion See Patient Comments .ROUTE .COMPLEX RF: 0 amlodipine 5 mg tablet 5 mg PO QAM RF: 0 levothyroxine 25 mcg tablet 25 mcg PO QAM RF: 0 aspirin 81 mg tablet,delayed release (DR/EC) 81 mg PO Q2D RF: 0 acetaminophen [Tylenol Extra Strength] 500 mg Tablet 500 mg PO Q6H PRN (Reason: Pain) RF: 0 losartan 100 mg tablet 100 mg PO QAM RF: 0 Discharge Orders: Discharge Order (Routine); Ordered 03/06/19 Ordered By: David Orozco Admission Data Admit Date/Time: 02/26/19 13:21 Attending Provider: Timbo Mosher Admit Provider: Lianne Navarro Primary Care Provider: Mariha Lockett Other Providers: Lianne Navarro ; Anthony Almanza ; Swati Menard ; Fabiola Valentine ; Casper Beard ; Davon James V ; Timbo Mosher ; Olivia Norris Service: Medical Other Interventions: Discharge Summary Assessment (RN) Last Done: 03/06/19 13:09 DC Date/Time DO NOT enter until pt leaves facility: 03/06/19 13:30 Supervising Physician Co-Signing Physician Notes I personally examined the patient and verified all bowden points of history and exam, discussed case, and agree with decision making with Dr Orozco. Wants to go home. Extensive discussion with patient and . Answered all questions to the best my ability and to their satisfaction. Vitals noted, in general he is awake and alert pleasant no distress, looks much brighter than when I last saw him last week. Breathing unlabored no accessory muscle use good effort. Skin shows no rashes no pallor or icterus. Dysphasia/failure to thriverelated to esophagitis, most likely radiation. His globus sensation could be worked up further with an EGD or at least a barium swallow, but right now he very much wants to go home, there is no urgency to this. He swallowed potassium pills well without any actual sticking, and if further work-up needs to be done, it is quite reasonable to do so as an outpatient. Continue to encourage oral intake as best as possible. Stable for home with close follow-up. Otherwise as above.
== END 2019-03-06 13:30 | disposition home or self-care (01) | DRG 391 ==
LOC: 4W 11:39 → ED 11:39 → SUATTDRO 13:33 → 4W 14:45 → SUATTDRO 02-26 13:21